=== PATIENT | male | born 1960 | race Caucasian/White ===

== ENCOUNTER 2018-03-26 20:02 | Inpatient (IN) | payer OTHER ==
[2018-03-26] VITALS (8 sets, daily range): BP systolic 97–134; BP diastolic 78–95; PULSE 60–74; RESP 15–25; Ht 165.1 cm; Wt 86.4 kg
[~2018-03-26] VITALS: Ht 165.1 cm; Wt 86.4 kg
[~2018-03-26 20:02] MED LIST: ASPIRIN 81 MG TAB ONE
[2018-03-26] MEDS ORDERED: AMIODARONE 150MG/D5W BOLUS IV* STA (20:04)
[2018-03-26] MEDS ORDERED: ASPIRIN 325 MG TAB PO STA (20:04)
[2018-03-26] MEDS ORDERED: HEPARIN 1000 UNITS/ML 10 ML INJ IV STA (20:07)
[2018-03-26] MEDS ORDERED: morphine 4 MG/ML VIAL IV STA (20:13)
[2018-03-26] MEDS ORDERED: ONDANSETRON 4 MG INJ IV STA (20:13)
[2018-03-26] MEDS ORDERED: NIAC500T81 PO (20:21)
[2018-03-26] MEDS ORDERED: OMEG-135 PO (20:22)
[2018-03-26] MEDS ORDERED: MAGNESIUM SULFATE 2 GM/50 ML 50 ML IVPB ONE (20:30)
[2018-03-26] MEDS ORDERED: FENTAnyl 50 MCG/ML VIAL ONE (20:35)
[2018-03-26] MEDS ORDERED: LIDOCAINE 1% (MDV) 20 ML INJ ONE (20:35)
[2018-03-26] MEDS ORDERED: HEPARIN 1000 UNITS/ML 10 ML INJ ONE (20:35)
[2018-03-26] MEDS ORDERED: IODIXANOL LOCM 100 ML BTL ONE (20:35)
[2018-03-26] MEDS ORDERED: MIDAZOLAM 1 MG/ML 2 ML INJ ONE (20:35)
[2018-03-26] MEDS ORDERED: NITROGLYCERIN (IC) 100 MCG/ML INJ ONE (20:36)
[2018-03-26] MEDS ORDERED: SOD CHLORIDE 0.9% 500 ML ONE (20:36)
[2018-03-26] MEDS ORDERED: BIVALIRUDIN 250MG /NS 50 ML 100 ML IVPB ONE (20:36)
[2018-03-26] MEDS ORDERED: VERAPAMIL 5 MG INJ ONE (20:39)
[2018-03-26] MEDS ORDERED: PRASUGREL HYDROCHLORIDE 10 MG TABLET PO ONE (20:45)
--- NOTE | 2018-03-26 21:05 | ERD ---
ER Documentation Chief Complaint Chief Complaint CHEST PAIN HPI 57-year-old Turkish and Malaysian-speaking gentleman who presents via cardiac arrest. The patient has reported chest pain since earlier this morning that was substernal and pressure-like. He was seen at his primary care office and sent to the emergency room. Prior to checking and the patient had a collapsed in the hallway. A code green was called. I rushed to the patient and the patient was in V. fib arrest. Please see documentation below. Remainder of HPI is limited given critical nature. ROS Critical patient limited Medications Home Meds Reported Medications [place]-3 Fatty Acids/Fish Oil (Fish Oil 1,000 mg Capsule) 1 Each Capsule, 1 EACH PO DAILY, CAP 03/26/18 Niacin* (Niacin*) 500 Mg Tablet, 500 MG PO QHS, TAB 03/26/18 Allergies Allergies: Coded Allergies: No Known Allergy (Unverified , 03/26/18) PMhx/Soc Medical and Surgical Hx: pt denies Surgical Hx History of Surgery: No Anesthesia Reaction: No Hx Neurological Disorder: No Hx Respiratory Disorders: No Hx Cardiac Disorders: No Hx Psychiatric Problems: No Hx Miscellaneous Medical Probl: Yes (HIGH CHOLESTEROL) Hx Alcohol Use: No Hx Substance Use: No Hx Tobacco Use: No Smoking Status: Never smoker FmHx Family History: No diabetes Physical Exam Vitals Vital Signs Date Temp Pulse Resp B/P (MAP) Pulse Ox O2 O2 Flow FiO2 Time Delivery Rate 03/26/18 Nasal 2 20:20 Cannula Physical Exam This exam exam performed after the patient's initial evaluation General: Well developed, well nourished, no acute distress Head: Normocephalic, atraumatic. Eyes: Pupils equally reactive, EOM intact ENT: Moist mucous membranes Neck: Supple, no lymphadenopathy Respiratory: Lungs clear bilaterally, no distress Cardiovascular: RRR, no murmurs, rubs, or gallops Abdominal: Soft, non-tender, non-distended, no peritoneal signs : Deferred MSK: No edema, no unilateral swelling, 5/5 strength Neurologic: Alert and oriented, moving all extremities, normal speech, no focal weakness, no cerebellar signs Skin: No rash Psych: Normal mood Result Diagram: 03/26/18200703/26/182007 Results 24 hrs Laboratory Tests Test 03/26/18 20:08 White Blood Count 19.2 10^3/ul Red Blood Count 5.24 10^6/ul Hemoglobin 15.9 g/dl Hematocrit 46.7 % Mean Corpuscular Volume 89.1 fl Mean Corpuscular Hemoglobin 30.3 pg Mean Corpuscular Hemoglobin Concent 34.0 g/dl Red Cell Distribution Width 12.6 % Platelet Count 147 10^3/UL Mean Platelet Volume 12.3 fl Immature Granulocytes % 0.700 % Neutrophils % 70.5 % Lymphocytes % 20.5 % Monocytes % 7.5 % Eosinophils % 0.4 % Basophils % 0.4 % Nucleated Red Blood Cells % 0.0 /100WBC Immature Granulocytes # 0.130 10^3/ul Neutrophils # 13.6 10^3/ul Lymphocytes # 3.9 10^3/ul Monocytes # 1.5 10^3/ul Eosinophils # 0.1 10^3/ul Basophils # 0.1 10^3/ul Nucleated Red Blood Cells # 0.0 10^3/ul Sodium Level 138 mmol/L Potassium Level 3.7 mmol/L Chloride Level 105 mmol/L Carbon Dioxide Level 20 mmol/L Anion Gap 13 Blood Urea Nitrogen 16 mg/dl Creatinine 1.22 mg/dl Est Glomerular Filtrat Rate mL/min > 60 mL/min Glucose Level 158 mg/dl Calcium Level 9.5 mg/dl Troponin I 7.330 ng/ml Current Medications Medications Dose Sig/Farhat Start Time Status Last (Trade) Ordered Route PRN Stop Time Admin Dose Reason Admin Aspirin 325 mg ONCE STAT 03/26/18 DC 03/26/18 (Aspirin) PO 20:04 20:00 03/26/18 20:05 Amiodarone 100 ml ONCE STAT 03/26/18 DC 03/26/18 HCl IV* 20:04 20:00 (Cordarone 03/26/18 20:05 150mg/ D5W Bolus) Heparin 4,000 unit ONCE STAT 03/26/18 DC Sodium IV 20:07 (Porcine) 03/26/18 20:08 (Heparin (1000 Units/ml)) Morphine 4 mg ONCE STAT 03/26/18 DC 03/26/18 Sulfate IV 20:13 20:30 (morphine) 03/26/18 20:14 Ondansetron 4 mg ONCE STAT 03/26/18 DC 03/26/18 HCl (Zofran IV 20:13 20:30 Inj) 03/26/18 20:14 Procedures/MDM EKG, MONITORS, & DIAGNOSTIC IMAGING: Chest x-ray: I reviewed and interpreted a 1 view of the chest Mediastinum: No enlargement Cardiac silhouette: No cardiomegaly Airspace: Clear lung harris bilaterally without evidence of pneumothorax Bones: No evidence of fracture EKG: I reviewed and interpreted a 12-lead EKG. Rhythm: Normal sinus rhythm ST Changes: ST elevations in inferior leads T waves: No contiguous T wave inversions Impression: STEMI LAB INTERPRETATION: I reviewed the laboratory testing and it shows troponin of 7 MEDICAL DECISION MAKING: The patient arrives via cardiac arrest. The patient had a V. fib cardiac arrest in the hallway just prior to checking into triage. His chest pain is concerning for acute coronary syndrome ER COURSE: * I arrived to the [facility] in the hallway. The patient was unresponsive and chest compressions were initiated. The patient was placed on defibrillator and the patient had V. fib cardiac arrest. The patient was defibrillated at 200 J * We continued chest compressions, the patient transiently regained consciousness however his wide-complex EKG on the monitor rapidly turned into ventricular fibrillation * The patient was again defibrillated at 200 J. * The patient stabilized. He was alert and moving all 4 extremities. The patient was placed on a gurney and brought to the emergency room. The patient is alert and conversive and does report 6 out of 10 chest pressure. * The patient is alert and conversive and moving all 4 extremities. He is neurologically intact and does not qualify for hypothermia protocol * A code STEMI was called while in route to the emergency department * Reimbursement Spec, Dr Lewis was notified. He recommends aspirin, 4000 units of heparin * Meds given, Morphine given. * LBPIV inserted. On monitor and pacer pads * Since the patient had V. fib cardiac arrest patient was given amiodarone and magnesium * The patient was taken to the Company [facility] at 8:20 PM CONSULTATION: Reimbursement Spec Dr. Lewis DISPOSITION PLAN: Company [employer] Accepting care team and consultations: I discussed the current laboratory data, diagnostic imaging and emergency care provided. Admitting team: Dr. Leiva notified Admitting team indication: Insurance directed Critical Care Note: Total time: 30 mins Indication/Organ System Threat: STEMI and V Fib arrest I spent the above amount of critical care time with the patient, not including billable procedures. This included chart review, consultations, repeat bedside evaluations, and titration of appropriate medications to prevent cardiopulmonary or respiratory collapse. Departure Diagnosis: Primary Impression: ST elevation myocardial infarction (STEMI) Additional Impressions: Cardiac arrest with ventricular fibrillation Signs of return of spontaneous circulation Condition: Critical JAMES MIMS MD Mar 26, 2018 21:05
[2018-03-26] MEDS ORDERED: SOD CHLORIDE 0.9% 1,000 ML IV SCH (21:17)
[2018-03-26] MEDS ORDERED: ONDANSETRON 4 MG INJ ONE (21:23)
--- NOTE | 2018-03-26 21:24 | CONS ---
Assessment/Plan Assessment/Plan Hospital Course (Demo Recall) 1. S/P SCD/ Survival of VF cardiac arrest 2. inferior STEMI 3. S/P emergent PCI LCX/OM 4. multivesel CAD 5. DYSLIPIDEMIA 6. GONZALEZ 7. Leukocytosis: probably reactive REC: ASA effient high dose statin betablocker as tolerated but hypotensive now ICU care CT head PCI RCA in a few days. high risk complex PCI LAD/ Diag at a later time. Thanks you JUANCARLOS CORONA MD [facility] Consultation Date/Type/Reason Admit Date/Time Date of Consultation: Mar 26, 2018 Type of Consult Cardiology Reason for Consultation STEMI Requesting Provider: JAMES MIMS MD Date/Time of Note DATE: 03/26/18 TIME: 21:23 Hx of Present Illness Interventional cardiology consultation note Chief complaint: chest pain, cardiac arrest Reason for consult: inferior STEMI. VF cardiac arrest History of present illness: Thank you for this referral. This is a pleasant 57 yo man with history of dyslipidemia who went to urgent care today with c/o GONZALEZ and anterior chest pain/ pressure. ECG was abnormal and sent to ER. While in hallway pt coded and collapsed and was noted to be in VF arrest and rescued. ECG confirmed inferior STEMI and code STEMI was called and I was emergently contacted. pt was seen by me in ER and once consent was obtained and team arrived pt was taken for emergent tamia angio and PCI his 100% lcx. dw/ family d/w multiple physician and staff pt had severe chest pain in ER but it has resolved post PCI PT C/O GONZALEZ since this am Allergies: NKDA Medications CHOLESTROL MEDICATION ( but noncompliant per family) Family history: no early CAD Social history: NONSMOKER Past medical history: Dyslipidemia Review of system: Patient denies all others except for above-mentioned Past Medical History Home Meds Reported Medications [place]-3 Fatty Acids/Fish Oil (Fish Oil 1,000 mg Capsule) 1 Each Capsule, 1 EACH PO DAILY, CAP 03/26/18 Niacin* (Niacin*) 500 Mg Tablet, 500 MG PO QHS, TAB 03/26/18 Medications Current Medications Magnesium Sulfate 50 ml @ 25 mls/hr ONCE ONCE IVPB Last administered on 03/26/18at 20:04; Admin Dose 25 MLS/HR; Start 03/26/18 at 20:30; Stop 03/26/18 at 22:29 Miscellaneous Information (* Miscellaneous Pharmacy Order) Hold all Metformin ... ONCE ONCE XX ; Start 03/26/18 at 21:30; Stop 03/26/18 at 21:31; Status UNV Aspirin (Halfprin) 81 mg DAILY PO ; Start 03/27/18 at 09:00; Status UNV Prasugrel (Effient) 10 mg DAILY PO ; Start 03/27/18 at 09:00; Status UNV Acetaminophen (Tylenol Tab) 650 mg Q4H PRN PO PAIN; Start 03/26/18 at 21:30; Status UNV Oxycodone/ Acetaminophen (Percocet (5/ 325)) 1 tab Q4H PRN PO PAIN; Start 03/26/18 at 21:30; Status UNV Morphine Sulfate (morphine) 1 mg Q1H PRN IV PAIN; Start 03/26/18 at 21:30; Status UNV Carvedilol (Coreg) 3.125 mg BID PO ; Start 03/27/18 at 09:00; Status UNV Atorvastatin Calcium (Lipitor) 80 mg DAILY@21 PO ; Start 03/27/18 at 21:00; Status UNV Lisinopril (Zestril) 2.5 mg DAILY PO ; Start 03/27/18 at 09:00; Status UNV Sodium Chloride 1,000 ml @ 75 mls/hr [id number] IV ; Start 03/26/18 at 21:17; Stop 03/27/18 at 10:36; Status UNV Allergies: Coded Allergies: No Known Allergy (Unverified , 03/26/18) Social History Smoking Status: Never smoker Exam/Review of Systems Vital Signs Vitals Vital Signs Date Temp Pulse Resp B/P (MAP) Pulse Ox O2 O2 Flow FiO2 Time Delivery Rate 03/26/18 98.5 85 26 127/90 99 Nasal 20:31 (102) Cannula 03/26/18 2 20:20 Exam Exam General: no acute distress HEENT: NC/AT. pupils are equal. round. NECK: NO JVD. no stridor. CV: RRR. systolic murmur; no gallop or rubs. PULM: no wheezing or rhonchi. GI: SOFT, NT, ND, no rebound or guarding Extremity: trace B/L LE edema. no clubbing. neuro: awake and alert, OX3. Psych: calm and pleasant rectal: deferred : normal ECG NSR inferior STEMI CXR no acute disease Labs Result Diagram: 03/26/18200703/26/182007 Results 24hrs Laboratory Tests Test 03/26/18 20:08 White Blood Count 19.2 H Red Blood Count 5.24 Hemoglobin 15.9 Hematocrit 46.7 Mean Corpuscular Volume 89.1 Mean Corpuscular Hemoglobin 30.3 Mean Corpuscular Hemoglobin Concent 34.0 Red Cell Distribution Width 12.6 Platelet Count 147 Mean Platelet Volume 12.3 H Immature Granulocytes % 0.700 H Neutrophils % 70.5 Lymphocytes % 20.5 Monocytes % 7.5 Eosinophils % 0.4 Basophils % 0.4 Nucleated Red Blood Cells % 0.0 Immature Granulocytes # 0.130 H Neutrophils # 13.6 H Lymphocytes # 3.9 H Monocytes # 1.5 H Eosinophils # 0.1 Basophils # 0.1 Nucleated Red Blood Cells # 0.0 Sodium Level 138 Potassium Level 3.7 Chloride Level 105 Carbon Dioxide Level 20 L Anion Gap 13 Blood Urea Nitrogen 16 Creatinine 1.22 Est Glomerular Filtrat Rate mL/min > 60 Glucose Level 158 Calcium Level 9.5 Troponin I 7.330 *H Medications Medications Current Medications Magnesium Sulfate 50 ml @ 25 mls/hr ONCE ONCE IVPB Last administered on 03/26/18at 20:04; Admin Dose 25 MLS/HR; Start 03/26/18 at 20:30; Stop 03/26/18 at 22:29 Miscellaneous Information (* Miscellaneous Pharmacy Order) Hold all Metformin ... ONCE ONCE XX ; Start 03/26/18 at 21:30; Stop 03/26/18 at 21:31; Status UNV Aspirin (Halfprin) 81 mg DAILY PO ; Start 03/27/18 at 09:00; Status UNV Prasugrel (Effient) 10 mg DAILY PO ; Start 03/27/18 at 09:00; Status UNV Acetaminophen (Tylenol Tab) 650 mg Q4H PRN PO PAIN; Start 03/26/18 at 21:30; Status UNV Oxycodone/ Acetaminophen (Percocet (5/ 325)) 1 tab Q4H PRN PO PAIN; Start 03/26/18 at 21:30; Status UNV Morphine Sulfate (morphine) 1 mg Q1H PRN IV PAIN; Start 03/26/18 at 21:30; Status UNV Carvedilol (Coreg) 3.125 mg BID PO ; Start 03/27/18 at 09:00; Status UNV Atorvastatin Calcium (Lipitor) 80 mg DAILY@21 PO ; Start 03/27/18 at 21:00; Status UNV Lisinopril (Zestril) 2.5 mg DAILY PO ; Start 03/27/18 at 09:00; Status UNV Sodium Chloride 1,000 ml @ 75 mls/hr [id number] IV ; Start 03/26/18 at 21:17; Stop 03/27/18 at 10:36; Status UNV JUANCARLOS CORONA MD Mar 26, 2018 21:24
[2018-03-26] MEDS ORDERED: ACETAMINOPHEN 325 MG TAB PO PRN (21:30)
[2018-03-26] MEDS ORDERED: morphine 2 MG INJ IV PRN (21:30)
--- NOTE | 2018-03-26 21:34 | OPR ---
Date/Time of Note Date/Time of Note DATE: 03/26/18 TIME: 21:24 Operative Report Procedure Date: Mar 26, 2018 Preoperative Diagnosis inferior STEMI VF cardiac arrest Postoperative Diagnosis STEMI Operation/Procedure Performed PCI LCX Surgeon see signature line Rough Rib Grader none Anesthesia Type: moderate sedation Estimated Blood Loss: minimal Transfusion none Specimen none Grafts/Implants none Complications none Procedure Description Legislative Advocate: Juancarlos Lewis MD Indication: inferior STEMI. VF cardiac arrest Procure performed: #1 EMERGENT left heart catheterization and selective right and left coronary angiogram #2 Right femoral angiogram and closure using a perclose device 3. Successful PTCA and stenting of lcx. OM using a 3X24 mm synergy SYLWIA 4. Thrombectomy of LCX /OM Moderate sedation for more than [] minutes Findings: 1. Left main: has 10% stenosis and birfurcates to LAD & LCX. 2. LAD: is small has 50% ostial 80-90 % stenosis at proximal LAD at the site of diagonal, and 100 % stenosis at mid LAD with L ---> L and R ---> L collaterals. diagonal 1 is moderate size vessel with 80% proximal stenosis. 3. Left circumflex artery: is moderate / large nondominant. it has 100 % stenosis at mid LCX/ Ostial OM1 ----> 0% POST PCI 4. RCA: is dominant. is small has 70% stenosis at mid RCA 5. LV: 99/20 Aortic pressure by pull back: 89/64 Procedure in detail: Written informed consent with obtained after risks benefits and alternatives discussed with the patient in detail. risks including but not limited to risk of infection vascular complications, bleeding complications, [place] stroke arrhythmia renal failure at even were discussed with the patient in detail. Patient was emergently brought into the cardiac lab head and placed in supine position. Right and left groin area was prepped and draped in regular sterile fashion and then he was in anesthetized using 1% lidocaine. Right femoral artery was cannulated and using modified seldinger technique a 6 Greek sheath was placed in the femoral artery. JL4 guiding catheter was advanced to engage the left main coronary artery angiographic view was obtained. JR4 catheter was advanced and engaged into the right coronary artery and angiographic view was obtained. At this time we decided to perform PCI of the LCX artery. A VODA 3.5 guiding head was advanced to engage the LM artery. BMW wire was used but could not cross. dispatcher ship pilot 50 was used and advanced across the lesion and placed distal to the lesion. I used a 2.5x12 mm balloon which was placed across the lesion and predilated the vessel. Then pronto was used and thrombectomy was done. Then I used a 3x24 mm synergy SYLWIA stent which was placed across the lesion and deployed at 16 haja. Final angiographic view was obtained which showed NELLI-3 flow no evidence of dissection and no significant residual stenosis at the site of the stent. Then a PIGTAIL was advanced to engage the left ventricle hemodynamics as recorded by pullback aortic pressure was measured. Femoral angiogram was done with flouros and perclose was successfully deployed. Patient tolerated the procedure well with no complication. Patient was transferred to ICU in stable condition. contrast used: 127 cc visipaque Conclusions: Successful PTCA/thrombectomy/ stenting of the LCX artery from 100% stenosis to no significant residual stenosis using a 3X24 mm synergy SYLWIA stent. Recommendation: Aggressive medical therapy ASA/ effient ICU care overnight staged PCI of RCA. LAD./ Diag at a later time. JUANCARLOS LEWIS MD [facility] JUANCARLOS LEWIS MD Mar 26, 2018 21:34
[2018-03-26] MEDS ORDERED: POTASSIUM CHLORIDE (SR) 20 MEQ TAB PO ONE (21:54)
[2018-03-26] MEDS: PANTOPRAZOLE (EC) 40 MG TAB PO SCH (23:17)
[2018-03-27] VITALS (46 sets, daily range): BP systolic 97–135; BP diastolic 64–91; PULSE 54–80; RESP 12–26
[2018-03-27] MEDS: OXYCODONE/ACETAMINOPHEN (5/325) TAB PO PRN ×2 (05:25→09:21)
[2018-03-27] MEDS: ASPIRIN (EC) 81 MG TAB PO SCH (09:10)
[2018-03-27] MEDS: LISINOPRIL 5 MG TAB PO SCH (09:11)
--- NOTE | 2018-03-27 09:33 | HP ---
Date/Time of Note Date/Time of Note DATE: 03/27/18 TIME: 09:11 Assessment/Plan VTE Prophylaxis Risk score (from [facility] [place])>0 risk: 3 SCD applied (from [facility] [place]): Yes Pharmacological prophylaxis: NA/contraindicated Pharm contraindication: other Lines/Catheters IV Catheter Type (from [facility] Saline Lock Urinary Cath still in place: No Assessment/Plan Assessment/Plan 57-year-old male with: 1. Acute OK, inferior ST elevation, status post stenting of left circumflex last night, patient with additional significant stenosis noted. Patient likely to need staged procedures, is currently on dual antiplatelets. Appreciate recommendations from cardiology. Continue current carvedilol, lisinopril and Lipitor. 2. Hyperlipidemia: On Lipitor now. Prophylaxis: Protonix for GI prophylaxis, SCDs for DVT prophylaxis. Disposition: In ICU likely to need additional PCI. Follow-up cardiology recommendations. Result Diagram: 03/27/18 0454 03/27/18 0454 Results 24hrs Laboratory Tests Test 03/26/18 20:08 03/26/18 23:20 03/27/18 04:54 03/27/18 04:56 White Blood Count 19.2 H 13.1 #H Red Blood Count 5.24 5.06 Hemoglobin 15.9 15.3 Hematocrit 46.7 45.8 Mean Corpuscular 89.1 90.5 Volume Mean Corpuscular 30.3 30.2 Hemoglobin Mean Corpuscular 34.0 33.4 Hemoglobin Concent Red Cell 12.6 13.0 Distribution Width Platelet Count 147 132 L Mean Platelet Volume 12.3 H 12.7 H Immature 0.700 H 0.500 H Granulocytes % Neutrophils % 70.5 83.3 H Lymphocytes % 20.5 10.5 L Monocytes % 7.5 5.5 Eosinophils % 0.4 0.0 Basophils % 0.4 0.2 Nucleated Red Blood 0.0 0.0 Cells % Immature 0.130 H 0.070 H Granulocytes # Neutrophils # 13.6 H 10.9 H Lymphocytes # 3.9 H 1.4 Monocytes # 1.5 H 0.7 Eosinophils # 0.1 0.0 Basophils # 0.1 0.0 Nucleated Red Blood 0.0 0.0 Cells # Sodium Level 138 143 Potassium Level 3.7 4.3 Chloride Level 105 101 Carbon Dioxide Level 20 L 27 Anion Gap 13 15 H Blood Urea Nitrogen 16 14 Creatinine 1.22 1.13 Est Glomerular > 60 > 60 Filtrat Rate mL/min Glucose Level 158 140 Calcium Level 9.5 9.3 Troponin I 7.330 *H 96.200 *H Magnesium Level 2.5 2.3 Total Bilirubin 0.8 Direct Bilirubin 0.00 Indirect Bilirubin 0.8 Aspartate Amino 507 H Transf (AST/SGOT) Alanine 156 H Aminotransferase (AL T/SGPT) Alkaline Phosphatase 74 Creatine Kinase Creatine Kinase 6.8 Index Creatinine Kinase MB 361.00 H (Mass) B-Type Natriuretic 1960 H Peptide Total Protein 7.8 Albumin 4.5 Globulin 3.30 H Albumin/Globulin 1.36 Ratio Triglycerides Level 161 H Cholesterol Level 249 H LDL Cholesterol, 183 Calculated HDL Cholesterol 34 Cholesterol/HDL 7.3 Ratio Thyroid Stimulating 0.484 Hormone (TSH) Free Thyroxine 1.04 Prothrombin Time 14.3 Prothrombin Time 1.1 Ratio INR International 1.10 Normalized Ratio HPI/ROS Admit Date/Time Admit Date/Time Hx of Present Illness Chief complaint: Chest pain, abnormal EKG History of presenting illness: This is a 57-year-old male with history of hyperlipidemia, very active otherwise who was sent over to the emergency department from a local clinic with acute onset of chest pain and abnormal EKG, the patient had episode of V. fib cardiac arrest while registering in the ER, he was resuscitated successfully, diagnosed with inferior ST elevation OK and taken to the [facility] for emergent cardiac angiogram and stent placement last night. Patient reports that he has had acute onset of chest pains yesterday morning, he thought it was acid reflux, he went on and indeed he does work throughout the morning, he felt substernal burning throughout the day, bilateral arm heaviness, later on started having diaphoresis, nausea, chest burning in the substernal chest heaviness and pain was persistent therefore his insisted for him to go to a 24-hour clinic. At the clinic an EKG was done, patient was told it was abnormal and showing signs of arrhythmia, he was told to come to [facility] ER by the clinic staff. The patient reports previous episodes of acid reflux but not anything like the symptoms he was having yesterday. He denies any previous history of coronary ar stacia disease, hypertension or diabetes. He does have hyperlipidemia. He does not take any medications besides Prilosec for acid reflux. ROS Constitutional: improved Eyes: no complaints ENT: no complaints Respiratory: no complaints Cardiovascular: chest pain, lightheadedness Gastrointestinal: nausea Genitourinary: no complaints Musculoskeletal: no complaints Skin: no complaints Neurologic: no complaints Endocrine: no complaints PMH/Family/Social Past Medical History Medical History: GERD, high cholesterol Medications Current Medications Aspirin (Halfprin) 81 mg DAILY PO ; Start 03/27/18 at 09:00 Prasugrel (Effient) 10 mg DAILY PO ; Start 03/27/18 at 09:00 Acetaminophen (Tylenol Tab) 650 mg Q4H PRN PO PAIN; Start 03/26/18 at 21:30 Oxycodone/ Acetaminophen (Percocet (5/ 325)) 1 tab Q4H PRN PO PAIN Last administered on 03/27/18at 05:25; Admin Dose 1 TAB; Start 03/26/18 at 21:30 Morphine Sulfate (morphine) 1 mg Q1H PRN IV PAIN; Start 03/26/18 at 21:30 Carvedilol (Coreg) 3.125 mg BID PO ; Start 03/27/18 at 09:00 Atorvastatin Calcium (Lipitor) 80 mg DAILY@21 PO ; Start 03/27/18 at 21:00 Lisinopril (Zestril) 2.5 mg DAILY PO ; Start 03/27/18 at 09:00 Sodium Chloride 1,000 ml @ 75 mls/hr [id number] IV Last administered on 03/26/18at 22:30; Admin Dose 75 MLS/HR; Start 03/26/18 at 21:17; Stop 03/27/18 at 10:36 Pantoprazole (Protonix Tab) 40 mg QHS PO Last administered on 03/26/18at 23:17; Admin Dose 40 MG; Start 03/26/18 at 22:00 Coded Allergies: No Known Allergy (Unverified , 03/26/18) Past Surgical History Surgery for kidney stone remotely. Past Surgical Hx: other Family History Significant Family History: no pertinent family hx Social History Alcohol Use: none Smoking Status: Never smoker Drug Use: none Exam/Review of Systems Vital Signs Vitals Vital Signs Date Temp Pulse Resp B/P (MAP) Pulse Ox O2 O2 Flow FiO2 Time Delivery Rate 03/27/18 69 22 113/85 96 Room Air 09:00 (94) 03/27/18 99.0 08:00 03/26/18 2 20:20 Intake and Output 03/26/18 03/26/18 03/27/18 1515:00 23:00 07:00 IntakeIntake Total 75 ml 375 ml BalanceBalance 75 ml 375 ml Exam Constitutional: alert, oriented, well developed Respiratory: clear to auscultation, normal air movement Cardiovascular: regular rate and rhythm, nl pulses Gastrointestinal: soft, non-tender Musculoskeletal: nl extremities to inspection Extremities: normal pulses, other (No edema, clubbing or cyanosis) Neurological: POLICY SPECIALIST II-XII intact, nl mental status, nl speech, nl strength Additional Comments PROCEDURE: XR Chest AP portable CLINICAL INDICATION: Chest pain TECHNIQUE: An AP portable radiograph of the chest was submitted. COMPARISON: None. FINDINGS: Support Hardware: None Cardiovascular: The cardiovascular silhouette appears unremarkable. Lung Harris: The lung harris appear clear with no nodule, alveolar infiltrate, or interstitial prominence evident. Pleural Spaces: No pneumothorax or pleural effusion is identified. Osseous Structures: The osseous structures appear intact. Soft Tissues: The soft tissues appear unremarkable. IMPRESSION: Unremarkable portable chest without evidence of active cardiopulmonary disease. Physician Yaniv Date Time Electronically viewed and signed by Physician Yaniv on 03/26/2018 20:31 PROCEDURE: CT Brain without contrast. CLINICAL INDICATION: Headache, status post fall TECHNIQUE: Axial images from the skull base through the vertex without IV contrast. Multiplanar reformatted images were made. Images were reviewed on a PACS workstation. The CTDIvol is 38.70 mGy and the DLP is 634.23 mGy-cm. One or more of the following dose reduction techniques were used: automated exposure control, adjustment of the mA and/or kV according to patient size, or use of iterative reconstruction technique. DICOM images are available. COMPARISON: None. FINDINGS: Mild left posterior parieto-occipital scalp soft tissue swelling, within which there are 2 tiny radiodense foci visible. Incidental note is also made of a few other scattered punctate subcutaneous calcifications within the scalp extending to the vertex. No acute intracranial hemorrhage or extraaxial fluid collection is seen. No midline shift or mass effect. Brooks-white delineation is maintained. No identifiable acute or recent territorial infarct. Ventricular size and configuration are within normal limits. No evidence of hydrocephalus. Mastoid air cells and visualized paranasal sinuses are clear. Mild calcified intracranial atherosclerosis. The calvarium is intact. IMPRESSION: Left posterior scalp soft tissue swelling within which there are 2 tiny ra diodense foci that may be preexisting scalp calcifications or tiny foreign bodies. No acute intracranial sequela from trauma is seen at this time. Calcified intracranial atherosclerosis. RPTAT: [facility] Physician Dilcia Date Time Electronically viewed and signed by Physician Dilcia on 03/27/2018 03:11 RUSS DE LA ROSA Mar 27, 2018 09:22
[2018-03-27] MEDS: ENOXAPARIN 100 MG/ML SYG SC SCH (13:37)
[2018-03-27] MEDS: PRASUGREL HYDROCHLORIDE 10 MG TABLET PO SCH (13:37)
--- NOTE | 2018-03-27 14:21 | CONS ---
Consult Date/Type/Reason Admit Date/Time Mar 26, 2018 at 20:25 Initial Consult Date 03/26/18 Type of Consultation: CV Requesting Provider: JAMES MIMS MD Date/Time of Note DATE: 03/27/18 TIME: 14:17 Subjective Interventional cardiology follow-up progress note/critical care note Subjective: Case discussed with staff and multiple physicians: Dr.. Discussed with multiple family members including son and daughter. Patient is still complaint of chest wall tenderness. He has had episodes of idioventricular rhythm this morning. Is been closely mon itor him in the ICU still. Denies any groin pain. Objective: General: no acute distress HEENT: NC/AT. pupils are equal. round. NECK: NO JVD. no stridor. CV: RRR. systolic murmur; no gallop or rubs. Chest: Positive reproducible chest wall tenderness PULM: no wheezing or rhonchi. GI: SOFT, NT, ND, no rebound or guarding Extremity: trace B/L LE edema. no clubbing. neuro: awake and alert, OX3. Psych: calm and pleasant rectal: deferred : normal Multiple EKGs were reviewed. Objective Vitals Vital Signs Date Temp Pulse Resp B/P (MAP) Pulse Ox O2 O2 Flow FiO2 Time Delivery Rate 03/27/18 62 24 104/80 99 Room Air 13:00 (88) 03/27/18 98.1 12:00 03/26/18 2 20:20 Intake and Output 03/26/18 03/26/18 03/27/18 1515:00 23:00 07:00 IntakeIntake Total 75 ml 375 ml BalanceBalance 75 ml 375 ml Results/Medications Result Diagram: 03/27/18 0454 03/27/18 0454 Results 24 hrs Laboratory Tests Test 03/26/18 20:08 03/26/18 23:20 03/27/18 04:54 03/27/18 04:56 White Blood Count 19.2 H 13.1 #H Red Blood Count 5.24 5.06 Hemoglobin 15.9 15.3 Hematocrit 46.7 45.8 Mean Corpuscular 89.1 90.5 Volume Mean Corpuscular 30.3 30.2 Hemoglobin Mean Corpuscular 34.0 33.4 Hemoglobin Concent Red Cell 12.6 13.0 Distribution Width Platelet Count 147 132 L Mean Platelet Volume 12.3 H 12.7 H Immature 0.700 H 0.500 H Granulocytes % Neutrophils % 70.5 83.3 H Lymphocytes % 20.5 10.5 L Monocytes % 7.5 5.5 Eosinophils % 0.4 0.0 Basophils % 0.4 0.2 Nucleated Red Blood 0.0 0.0 Cells % Immature 0.130 H 0.070 H Granulocytes # Neutrophils # 13.6 H 10.9 H Lymphocytes # 3.9 H 1.4 Monocytes # 1.5 H 0.7 Eosinophils # 0.1 0.0 Basophils # 0.1 0.0 Nucleated Red Blood 0.0 0.0 Cells # Sodium Level 138 143 Potassium Level 3.7 4.3 Chloride Level 105 101 Carbon Dioxide Level 20 L 27 Anion Gap 13 15 H Blood Urea Nitrogen 16 14 Creatinine 1.22 1.13 Est Glomerular > 60 > 60 Filtrat Rate mL/min Glucose Level 158 140 Calcium Level 9.5 9.3 Troponin I 7.330 *H 96.200 *H Magnesium Level 2.5 2.3 Hemoglobin A1c 6.0 H Total Bilirubin 0.8 Direct Bilirubin 0.00 Indirect Bilirubin 0.8 Aspartate Amino 507 H Transf (AST/SGOT) Alanine 156 H Aminotransferase (AL T/SGPT) Alkaline Phosphatase 74 Creatine Kinase Creatine Kinase 6.8 Index Creatinine Kinase MB 361.00 H (Mass) B-Type Natriuretic 1960 H Peptide Total Protein 7.8 Albumin 4.5 Globulin 3.30 H Albumin/Globulin 1.36 Ratio Triglycerides Level 161 H Cholesterol Level 249 H LDL Cholesterol, 183 Calculated HDL Cholesterol 34 Cholesterol/HDL 7.3 Ratio Thyroid Stimulating 0.484 Hormone (TSH) Free Thyroxine 1.04 Prothrombin Time 14.3 Prothrombin Time 1.1 Ratio INR International 1.10 Normalized Ratio Home Meds Reported Medications Zamora-3 Fatty Acids/Fish Oil (Fish Oil 1,000 mg Capsule) 1 Each Capsule, 1 EACH PO DAILY, CAP 03/26/18 Niacin* (Niacin*) 500 Mg Tablet, 500 MG PO QHS, TAB 03/26/18 Medications Current Medications Aspirin (Halfprin) 81 mg DAILY PO Last administered on 03/27/18at 09:10; Admin Dose 81 MG; Start 03/27/18 at 09:00 Prasugrel (Effient) 10 mg DAILY PO Last administered on 2/16/19at 13:37; Admin Dose 10 MG; Start 03/27/18 at 09:00 Acetaminophen (Tylenol Tab) 650 mg Q4H PRN PO PAIN; Start 03/26/18 at 21:30 Oxycodone/ Acetaminophen (Percocet (5/ 325)) 1 tab Q4H PRN PO PAIN Last administered on 03/27/18 09:21; Admin Dose 1 TAB; Start 03/26/18 at 21:30 Morphine Sulfate (morphine) 1 mg Q1H PRN IV PAIN; Start 03/26/18 at 21:30 Carvedilol (Coreg) 3.125 mg BID PO Last administered on 03/27/18 09:11; Admin Dose 3.125 MG; Start 03/27/18 at 09:00 Atorvastatin Calcium (Lipitor) 80 mg DAILY@21 PO ; Start 03/27/18 at 21:00 Lisinopril (Zestril) 2.5 mg DAILY PO Last administered on 03/27/18 09:11; Admin Dose 2.5 MG; Start 03/27/18 at 09:00 Pantoprazole (Protonix Tab) 40 mg QHS PO Last administered on 03/26/18 23:17; Admin Dose 40 MG; Start 03/26/18 at 22:00 Enoxaparin Sodium (Lovenox) 85 mg Q12H SC Last administered on 03/27/18 13:37; Admin Dose 85 MG; Start 03/27/18 at 13:00; Stop 03/28/18 at 01:01 Assessment/Plan Hospital Course (Demo Recall) 1. S/P SCD/ Survival of VF cardiac arrest 2. inferior STEMI 3. S/P emergent PCI LCX/OM 4. multivesel CAD 5. DYSLIPIDEMIA 6. GONZALEZ 7. Leukocytosis: probably reactive : Improved now REC: CONT ASA effient high dose statin betablocker as tolerated but limited due to hypotension and bradycardia ICU care CT head did not show any active bleeding PCI RCA in a few days. high risk complex PCI LAD/ Diag at a later time. Echo has been ordered. I will waiting to be completed so I can review it personally. More than 38 minutes of critical care time was for management treatment of this critically ill patient excluding any procedures Thanks you JUANCARLOS CORONA MD [facility] JUANCARLOS CORONA MD Mar 27, 2018 14:21
[2018-03-27] MEDS: ATORVASTATIN 80 MG TAB PO SCH (20:09)
[2018-03-27] MEDS: PANTOPRAZOLE (EC) 40 MG TAB PO SCH (20:09)
[2018-03-28] VITALS (16 sets, daily range): BP systolic 85–140; BP diastolic 65–95; PULSE 63–78; RESP 12–22
[2018-03-28] MEDS: ENOXAPARIN 100 MG/ML SYG SC SCH (01:24)
[2018-03-28] MEDS: PRASUGREL HYDROCHLORIDE 10 MG TABLET PO SCH (08:01)
[2018-03-28] MEDS: ASPIRIN (EC) 81 MG TAB PO SCH (08:01)
[2018-03-28] MEDS: LISINOPRIL 5 MG TAB PO SCH (09:00)
--- NOTE | 2018-03-28 09:29 | PN ---
Date/Time of Note Date/Time of Note DATE: 03/28/18 TIME: 09:15 Assessment/Plan VTE Prophylaxis Risk score (from [facility])>0 risk: 4 [place] [facility] [place] Pharmacological prophylaxis: NA/contraindicated Pharm contraindication: other Lines/Catheters [facility] Saline Lock Urinary Cath still in place: No Assessment/Plan Assessment/Plan 57-year-old male with: 1. Acute PA, inferior ST elevation, status post stenting of left circumflex last night, patient with additional significant stenosis noted. 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 Appreciate recommendations from cardiology. Will downgrade to Telemetry 2. Hyperlipidemia: On Lipitor now. Prophylaxis: Protonix for GI prophylaxis, SCDs for DVT prophylaxis. Disposition: Telemetry and plan for chemical lab supervisor tomorrow. Result Diagram: 03/28/18 0416 03/28/18 0416 Results 24hrs Laboratory Tests Test 03/27/18 16:13 03/28/18 04:16 Creatine Kinase 5064 H 2431 #H Creatine Kinase Index 2.8 1.6 Creatinine Kinase MB (Mass) 144.00 H 39.60 H Troponin I 64.000 *H 45.900 *H White Blood Count 11.4 H Red Blood Count 4.77 Hemoglobin 14.4 Hematocrit 43.2 Mean Corpuscular Volume 90.6 Mean Corpuscular Hemoglobin 30.2 Mean Corpuscular Hemoglobin Concent 33.3 Red Cell Distribution Width 12.9 Platelet Count 123 L Mean Platelet Volume 12.7 H Immature Granulocytes % 0.400 Neutrophils % 63.4 Lymphocytes % 26.3 Monocytes % 8.6 Eosinophils % 0.9 Basophils % 0.4 Nucleated Red Blood Cells % 0.0 Immature Granulocytes # 0.040 H Neutrophils # 7.2 Lymphocytes # 3.0 H Monocytes # 1.0 H Eosinophils # 0.1 Basophils # 0.0 Nucleated Red Blood Cells # 0.0 Sodium Level 141 Potassium Level 4.2 Chloride Level 101 Carbon Dioxide Level 29 Anion Gap 11 Blood Urea Nitrogen 15 Creatinine 1.25 H Est Glomerular Filtrat Rate mL/min 60 Glucose Level 108 Calcium Level 9.1 Phosphorus Level 3.3 Magnesium Level 2.0 Total Bilirubin 1.3 Direct Bilirubin 0.00 Indirect Bilirubin 1.3 H Aspartate Amino Transf (AST/SGOT) 230 #H Alanine Aminotransferase (ALT/SGPT) 112 H Alkaline Phosphatase 67 Total Protein 7.3 Albumin 4.0 Globulin 3.30 H Albumin/Globulin Ratio 1.21 Subjective 24 Hr Interval Summary Free Text/Dictation Patient remained stable, he was noted to have an episode of hypotension with systolic blood pressure in the 80s according to RN overnight, currently systolic blood pressure in the upper 100s. We will continue to monitor blood pressure, patient will be transferred to telemetry. He does have some reproducible chest wall pain left axillary area. Exam/Review of Systems Exam Vitals Vital Signs Date Temp Pulse Resp B/P (MAP) Pulse Ox O2 O2 Flow FiO2 Time Delivery Rate 03/28/18 98.9 77 16 85/68 (74) 98 Room Air 04:00 03/26/18 2 20:20 Intake and Output 03/27/18 03/27/18 03/28/18 1515:00 23:00 07:00 IntakeIntake Total 900 ml 450 ml 400 ml OutputOutput Total 800 ml 250 ml BalanceBalance 100 ml 200 ml 400 ml Constitutional: alert, oriented, well developed Respiratory: clear to auscultation, normal air movement Cardiovascular: regular rate and rhythm, nl pulses Gastrointestinal: soft, non-tender Musculoskeletal: nl extremities to inspection Extremities: normal pulses, other (No edema, clubbing or cyanosis) Neurological: [employer] II-XII intact, nl mental status, nl speech, nl strength Results Results 24hrs Laboratory Tests Test 03/27/18 16:13 03/28/18 04:16 Creatine Kinase 5064 H 2431 #H Creatine Kinase Index 2.8 1.6 Creatinine Kinase MB (Mass) 144.00 H 39.60 H Troponin I 64.000 *H 45.900 *H White Blood Count 11.4 H Red Blood Count 4.77 Hemoglobin 14.4 Hematocrit 43.2 Mean Corpuscular Volume 90.6 Mean Corpuscular Hemoglobin 30.2 Mean Corpuscular Hemoglobin Concent 33.3 Red Cell Distribution Width 12.9 Platelet Count 123 L Mean Platelet Volume 12.7 H Immature Granulocytes % 0.400 Neutrophils % 63.4 Lymphocytes % 26.3 Monocytes % 8.6 Eosinophils % 0.9 Basophils % 0.4 Nucleated Red Blood Cells % 0.0 Immature Granulocytes # 0.040 H Neutrophils # 7.2 Lymphocytes # 3.0 H Monocytes # 1.0 H Eosinophils # 0.1 Basophils # 0.0 Nucleated Red Blood Cells # 0.0 Sodium Level 141 Potassium Level 4.2 Chloride Level 101 Carbon Dioxide Level 29 Anion Gap 11 Blood Urea Nitrogen 15 Creatinine 1.25 H Est Glomerular Filtrat Rate mL/min 60 Glucose Level 108 Calcium Level 9.1 Phosphorus Level 3.3 Magnesium Level 2.0 Total Bilirubin 1.3 Direct Bilirubin 0.00 Indirect Bilirubin 1.3 H Aspartate Amino Transf (AST/SGOT) 230 #H Alanine Aminotransferase (ALT/SGPT) 112 H Alkaline Phosphatase 67 Total Protein 7.3 Albumin 4.0 Globulin 3.30 H Albumin/Globulin Ratio 1.21 Medications Medication Current Medications Aspirin (Halfprin) 81 mg DAILY PO Last administered on 03/28/18 08:01; Admin Dose 81 MG; Start 03/27/18 at 09:00 Prasugrel (Effient) 10 mg DAILY PO Last administered on 03/28/18 08:01; Admin Dose 10 MG; Start 03/27/18 at 09:00 Acetaminophen (Tylenol Tab) 650 mg Q4H PRN PO PAIN; Start 03/26/18 at 21:30 Oxycodone/ Acetaminophen (Percocet (5/ 325)) 1 tab Q4H PRN PO PAIN Last administered on 03/27/18 09:21; Admin Dose 1 TAB; Start 03/26/18 at 21:30 Morphine Sulfate (morphine) 1 mg Q1H PRN IV PAIN; Start 03/26/18 at 21:30 Carvedilol (Coreg) 3.125 mg BID PO Last administered on 03/27/18 20:09; Admin Dose 3.125 MG; Start 03/27/18 at 09:00 Atorvastatin Calcium (Lipitor) 80 mg DAILY@21 PO Last administered on 03/27/18 20:09; Admin Dose 80 MG; Start 03/27/18 at 21:00 Lisinopril (Zestril) 2.5 mg DAILY PO Last administered on 03/27/18 09:11; Admin Dose 2.5 MG; Start 03/27/18 at 09:00 Pantoprazole (Protonix Tab) 40 mg QHS PO Last administered on 03/27/18 20:09; Admin Dose 40 MG; Start 03/26/18 at 22:00 RUSS DE LA ROSAb 17, 2019 09:27
--- NOTE | 2018-03-28 14:13 | CONS ---
Consult Date/Type/Reason Admit Date/Time Mar 26, 2018 at 20:25 Initial Consult Date 03/26/18 Type of Consultation: CV Requesting Provider: JAMES MIMS MD Date/Time of Note DATE: 03/28/18 TIME: 14:11 Subjective Interventional cardiology follow-up progress note/critical care note Subjective: Case discussed with staff and multiple physicians: Dr Leiva. Discussed with multiple family members Patient with less chest wall tenderness. He has had no more episodes of idioventricular rhythm this morning. but was hypotensive Denies any groin pain. Objective: General: no acute distress HEENT: NC/AT. pupils are equal. round. NECK: NO JVD. no stridor. CV: RRR. systolic murmur; no gallop or rubs. Chest: Positive reproducible chest wall tenderness PULM: no wheezing or rhonchi. GI: SOFT, NT, ND, no rebound or guarding Extremity: trace B/L LE edema. no clubbing. neuro: awake and alert, OX3. Psych: calm and pleasant rectal: deferred : normal Objective Vitals Vital Signs Date Temp Pulse Resp B/P (MAP) Pulse Ox O2 O2 Flow FiO2 Time Delivery Rate 03/28/18 66 12:00 03/28/18 97.9 20 110/88 100 Room Air 12:00 (95) 03/26/18 2 20:20 Intake and Output 03/27/18 03/27/18 03/28/18 1515:00 23:00 07:00 IntakeIntake Total 900 ml 450 ml 400 ml OutputOutput Total 800 ml 250 ml BalanceBalance 100 ml 200 ml 400 ml Results/Medications Result Diagram: 03/28/18 0416 03/28/18 0416 Results 24 hrs Laboratory Tests Test 03/27/18 16:13 03/28/18 04:16 Creatine Kinase 5064 H 2431 #H Creatine Kinase Index 2.8 1.6 Creatinine Kinase MB (Mass) 144.00 H 39.60 H Troponin I 64.000 *H 45.900 *H White Blood Count 11.4 H Red Blood Count 4.77 Hemoglobin 14.4 Hematocrit 43.2 Mean Corpuscular Volume 90.6 Mean Corpuscular Hemoglobin 30.2 Mean Corpuscular Hemoglobin Concent 33.3 Red Cell Distribution Width 12.9 Platelet Count 123 L Mean Platelet Volume 12.7 H Immature Granulocytes % 0.400 Neutrophils % 63.4 Lymphocytes % 26.3 Monocytes % 8.6 Eosinophils % 0.9 Basophils % 0.4 Nucleated Red Blood Cells % 0.0 Immature Granulocytes # 0.040 H Neutrophils # 7.2 Lymphocytes # 3.0 H Monocytes # 1.0 H Eosinophils # 0.1 Basophils # 0.0 Nucleated Red Blood Cells # 0.0 Sodium Level 141 Potassium Level 4.2 Chloride Level 101 Carbon Dioxide Level 29 Anion Gap 11 Blood Urea Nitrogen 15 Creatinine 1.25 H Est Glomerular Filtrat Rate mL/min 60 Glucose Level 108 Calcium Level 9.1 Phosphorus Level 3.3 Magnesium Level 2.0 Total Bilirubin 1.3 Direct Bilirubin 0.00 Indirect Bilirubin 1.3 H Aspartate Amino Transf (AST/SGOT) 230 #H Alanine Aminotransferase (ALT/SGPT) 112 H Alkaline Phosphatase 67 Total Protein 7.3 Albumin 4.0 Globulin 3.30 H Albumin/Globulin Ratio 1.21 Home Meds Reported Medications [place]-3 Fatty Acids/Fish Oil (Fish Oil 1,000 mg Capsule) 1 Each Capsule, 1 EACH PO DAILY, CAP 03/26/18 Niacin* (Niacin*) 500 Mg Tablet, 500 MG PO QHS, TAB 03/26/18 Medications Current Medications Aspirin (Halfprin) 81 mg DAILY PO Last administered on 03/28/18at 08:01; Admin Dose 81 MG; Start 03/27/18 at 09:00 Prasugrel (Effient) 10 mg DAILY PO Last administered on 03/28/18at 08:01; Admin Dose 10 MG; Start 03/27/18 at 09:00 Acetaminophen (Tylenol Tab) 650 mg Q4H PRN PO PAIN; Start 03/26/18 at 21:30 Oxycodone/ Acetaminophen (Percocet (5/ 325)) 1 tab Q4H PRN PO PAIN Last ad ministered on 03/27/18at 09:21; Admin Dose 1 TAB; Start 03/26/18 at 21:30 Morphine Sulfate (morphine) 1 mg Q1H PRN IV PAIN; Start 03/26/18 at 21:30 Carvedilol (Coreg) 3.125 mg BID PO Last administered on 03/27/18at 20:09; Admin Dose 3.125 MG; Start 03/27/18 at 09:00 Atorvastatin Calcium (Lipitor) 80 mg DAILY@21 PO Last administered on 03/27/18at 20:09; Admin Dose 80 MG; Start 03/27/18 at 21:00 Lisinopril (Zestril) 2.5 mg DAILY PO Last administered on 03/27/18at 09:11; Admin Dose 2.5 MG; Start 03/27/18 at 09:00 Pantoprazole (Protonix Tab) 40 mg QHS PO Last administered on 03/27/18at 20:09; Admin Dose 40 MG; Start 03/26/18 at 22:00 Assessment/Plan Hospital Course (Demo Recall) 1. S/P SCD/ Survival of VF cardiac arrest 2. inferior STEMI 3. S/P emergent PCI LCX/OM 4. multivesel CAD 5. DYSLIPIDEMIA 6. GONZALEZ 7. Leukocytosis: probably reactive : Improved now REC: CONT ASA effient high dose statin betablocker as tolerated but limited due to hypotension and bradycardia CT head did not show any active bleeding PCI RCA tomorrow afternoon. high risk complex PCI LAD/ Diag at a later time. Thanks you JUANCARLOS CORONA MD [facility] JUANCARLOS CORONA MD Mar 28, 2018 14:13
[2018-03-28] MEDS: ATORVASTATIN 80 MG TAB PO SCH (20:34)
[2018-03-28] MEDS: PANTOPRAZOLE (EC) 40 MG TAB PO SCH (20:34)
[2018-03-29] VITALS (31 sets, daily range): BP systolic 85–134; BP diastolic 59–77; PULSE 0–92; RESP 12–24
[2018-03-29] MEDS ORDERED: AMIODARONE 150 MG INJ ONE (07:00)
[2018-03-29] MEDS: ASPIRIN (EC) 81 MG TAB PO SCH (08:17)
[2018-03-29] MEDS: PRASUGREL HYDROCHLORIDE 10 MG TABLET PO SCH (08:17)
--- NOTE | 2018-03-29 09:45 | PN ---
Date/Time of Note Date/Time of Note DATE: 03/29/18 TIME: 09:43 Subjective Chart was reviewed. Patient denies any chest pain or shortness of breath. Vital signs are stable he is afebrile Neck is supple no JVD no carotid bruits Lungs are clear to auscultation bilaterally Cardiac regular rate and rhythm no murmurs or gallops Abdomen soft nontender nondistended normoactive bowel sounds Extremities no clubbing cyanosis or edema Neurological nonfocal Objective Vitals Vital Signs Date Temp Pulse Resp B/P (MAP) Pulse Ox O2 O2 Flow FiO2 Time Delivery Rate 03/29/18 80 08:01 03/29/18 98.4 18 98/63 (75) 93 07:29 03/29/18 Room Air 04:03 03/26/18 2 20:20 Intake and Output 03/28/18 03/28/18 03/29/18 1515:00 23:00 07:00 IntakeIntake Total 450 ml 250 ml 250 ml OutputOutput Total 900 ml 250 ml BalanceBalance -450 ml 0 ml 250 ml Results Result Diagram: 03/29/18 0533 03/29/18 0533 Medications Medications Current Medications Aspirin (Halfprin) 81 mg DAILY PO Last administered on 03/29/18at 08:17; Admin Dose 81 MG; Start 03/27/18 at 09:00 Prasugrel (Effient) 10 mg DAILY PO Last administered on 03/29/18at 08:17; Admin Dose 10 MG; Start 03/27/18 at 09:00 Acetaminophen (Tylenol Tab) 650 mg Q4H PRN PO PAIN; Start 03/26/18 at 21:30 Oxycodone/ Acetaminophen (Percocet (5/ 325)) 1 tab Q4H PRN PO PAIN Last administered on 03/27/18at 09:21; Admin Dose 1 TAB; Start 03/26/18 at 21:30 Morphine Sulfate (morphine) 1 mg Q1H PRN IV PAIN; Start 03/26/18 at 21:30 Carvedilol (Coreg) 3.125 mg BID PO Last administered on 03/28/18at 20:35; Admin Dose 3.125 MG; Start 03/27/18 at 09:00 Atorvastatin Calcium (Lipitor) 80 mg DAILY@21 PO Last administered on 03/28/18at 20:34; Admin Dose 80 MG; Start 03/27/18 at 21:00 Lisinopril (Zestril) 2.5 mg DAILY PO Last administered on 03/27/18at 09:11; Admin Dose 2.5 MG; Start 03/27/18 at 09:00 Pantoprazole (Protonix Tab) 40 mg QHS PO Last administered on 03/28/18at 20:34; Admin Dose 40 MG; Start 03/26/18 at 22:00 VTE Prophylaxis Risk score (from Ns)>0 risk: 2 SCD applied (from [facility]): No SCD contraindication: low risk/ambulating Lines/Catheters IV Catheter Type: Saline Lock Mercado in Place: No Assessment/Plan Assessment/Plan 57-year-old male with acute inferior STEMI Status post cardiac arrest Status post PCI and stent placement to circumflex Hypertension Continue present medical therapy Patient is going back to [facility] for further intervention Cardiology follow-up Discharge planning in ASHLEY Thomas MD Mar 29, 2018 09:45
[2018-03-29] MEDS: LISINOPRIL 5 MG TAB PO SCH (11:32)
[2018-03-29] MEDS ORDERED: VERAPAMIL 5 MG INJ ONE ×2 (14:49→14:59)
[2018-03-29] MEDS ORDERED: NITROGLYCERIN (IC) 100 MCG/ML INJ ONE (14:49)
[2018-03-29] MEDS ORDERED: IODIXANOL LOCM 100 ML BTL ONE (14:49)
[2018-03-29] MEDS ORDERED: MIDAZOLAM 1 MG/ML 2 ML INJ ONE (14:49)
[2018-03-29] MEDS ORDERED: LIDOCAINE 1% (MDV) 20 ML INJ ONE (14:49)
[2018-03-29] MEDS ORDERED: FENTAnyl 50 MCG/ML VIAL ONE (14:49)
[2018-03-29] MEDS ORDERED: HEPARIN 1000 UNITS/ML 10 ML INJ ONE (14:49)
--- NOTE | 2018-03-29 15:58 | CONS ---
Consult Date/Type/Reason Admit Date/Time Mar 26, 2018 at 20:25 Initial Consult Date 03/26/18 Type of Consultation: CV Requesting Provider: JAMES MIMS MD Date/Time of Note DATE: 03/29/18 TIME: 15:52 Subjective Interventional cardiology follow-up progress note/critical care note Subjective: Case discussed with staff and multiple family members Patient with less chest wall tenderness. He has had no more episodes of idioventricular rhythm this morning. Denies any groin pain. Objective: General: no acute distress HEENT: NC/AT. pupils are equal. round. NECK: NO JVD. no stridor. CV: RRR. systolic murmur; no gallop or rubs. Chest: Positive reproducible chest wall tenderness PULM: no wheezing or rhonchi. GI: SOFT, NT, ND, no rebound or guarding Extremity: trace B/L LE edema. no clubbing. neuro: awake and alert, OX3. Psych: calm and pleasant rectal: deferred : normal Objective Vitals Vital Signs Date Temp Pulse Resp B/P (MAP) Pulse Ox O2 O2 Flow FiO2 Time Delivery Rate 03/29/18 76 12:01 03/29/18 97.9 18 134/72 99 11:21 (92) 03/29/18 Room Air 04:03 03/26/18 2 20:20 Intake and Output 03/28/18 03/28/18 03/29/18 1414:59 22:59 06:59 IntakeIntake Total 450 ml 250 ml 250 ml OutputOutput Total 900 ml 250 ml BalanceBalance -450 ml 0 ml 250 ml Results/Medications Result Diagram: 03/29/18 0533 03/29/18 0533 Results 24 hrs Laboratory Tests Test 03/29/18 05:33 White Blood Count 10.3 Red Blood Count 5.02 Hemoglobin 15.5 Hematocrit 45.0 Mean Corpuscular Volume 89.6 Mean Corpuscular Hemoglobin 30.9 Mean Corpuscular Hemoglobin Concent 34.4 Red Cell Distribution Width 12.6 Platelet Count 125 L Mean Platelet Volume 12.5 H Immature Granulocytes % 0.500 H Neutrophils % 64.6 Lymphocytes % 22.6 Monocytes % 9.8 Eosinophils % 2.1 Basophils % 0.4 Nucleated Red Blood Cells % 0.0 Immature Granulocytes # 0.050 H Neutrophils # 6.7 Lymphocytes # 2.3 Monocytes # 1.0 H Eosinophils # 0.2 Basophils # 0.0 Nucleated Red Blood Cells # 0.0 Prothrombin Time 13.3 Prothrombin Time Ratio 1.0 INR International Normalized Ratio 1.00 Sodium Level 139 Potassium Level 4.4 Chloride Level 104 Carbon Dioxide Level 28 Anion Gap 7 Blood Urea Nitrogen 19 Creatinine 1.20 Est Glomerular Filtrat Rate mL/min > 60 Glucose Level 105 Calcium Level 9.8 Phosphorus Level 3.9 Magnesium Level 2.1 Creatine Kinase 933 #H Creatine Kinase Index 0.5 Creatinine Kinase MB (Mass) 4.61 H Troponin I 26.400 *H Home Meds Reported Medications [place]-3 Fatty Acids/Fish Oil (Fish Oil 1,000 mg Capsule) 1 Each Capsule, 1 EACH PO DAILY, CAP 03/26/18 Niacin* (Niacin*) 500 Mg Tablet, 500 MG PO QHS, TAB 03/26/18 Medications Current Medications Aspirin (Halfprin) 81 mg DAILY PO Last administered on 03/29/18 08:17; Admin Dose 81 MG; Start 03/27/18 at 09:00 Prasugrel (Effient) 10 mg DAILY PO Last administered on 03/29/18 08:17; Admin Dose 10 MG; Start 03/27/18 at 09:00 Acetaminophen (Tylenol Tab) 650 mg Q4H PRN PO PAIN; Start 03/26/18 at 21:30 Oxycodone/ Acetaminophen (Percocet (5/ 325)) 1 tab Q4H PRN PO PAIN Last administered on 03/27/18at 09:21; Admin Dose 1 TAB; Start 03/26/18 at 21:30 Morphine Sulfate (morphine) 1 mg Q1H PRN IV PAIN; Start 03/26/18 at 21:30 Carvedilol (Coreg) 3.125 mg BID PO Last administered on 03/28/18at 20:35; Admin Dose 3.125 MG; Start 03/27/18 at 09:00 Atorvastatin Calcium (Lipitor) 80 mg DAILY@21 PO Last administered on 03/28/18at 20:34; Admin Dose 80 MG; Start 03/27/18 at 21:00 Lisinopril (Zestril) 2.5 mg DAILY PO Last administered on 03/29/18at 11:32; Admin Dose 2.5 MG; Start 03/27/18 at 09:00 Pantoprazole (Protonix Tab) 40 mg QHS PO Last administered on 03/28/18at 20:34; Admin Dose 40 MG; Start 03/26/18 at 22:00 Assessment/Plan Hospital Course (Demo Recall) 1. S/P SCD/ Survival of VF cardiac arrest 2. inferior STEMI 3. S/P emergent PCI LCX/OM 4. multivesel CAD 5. DYSLIPIDEMIA 6. GONZALEZ 7. Leukocytosis: probably reactive : Improved now REC: CONT ASA effient high dose statin betablocker as tolerated but limited due to hypotension and bradycardia CT head did not show any active bleeding PCI RCA today high risk complex PCI LAD/ Diag at a later time. Thanks you JUANCARLOS CORONA MD [facility] JUANCARLOS CORONA MD Mar 29, 2018 15:58
--- NOTE | 2018-03-29 16:06 | OPR ---
Date/Time of Note Date/Time of Note DATE: 03/29/18 TIME: 15:58 Operative Report Procedure Date: Mar 29, 2018 Preoperative Diagnosis TN. CAD Postoperative Diagnosis same Operation/Procedure Performed PCI RCA Surgeon see signature line Relocation Associate none Anesthesia Type: moderate sedation Estimated Blood Loss: minimal Transfusion none Specimen none Grafts/Implants none Complications none Procedure Description Building Appraiser: Juancarlos Lewis MD Building Appraiser: Juancarlos Lewis MD Indication: 57-year-old gentleman who presented with inferior ST elevation myocardial infarction a few days ago. Patient underwent PCI of his left cecum was artery at that time. He was also noted to have significant RCA and very c omplex LAD diagonal disease. He was scheduled for a stage PCI of the RCA and evaluation of the left circumflex artery because of his repeated chest pain today. Procure performed: #1 left heart catheterization and selective right and left coronary angiogram using left raidal approch. #2 Successful PTCA and stenting of right coronary artery using a 3 x 12 mm Synergy drug-eluting stent 3. Angioplasty of the ostium of the posterior lateral artery 4. Moderate sedation for more than 60 minutes Findings: 1. Left main: has 10% stenosis and birfurcates to LAD & LCX. 2. LAD: is small has 50% ostial 80-90 % stenosis at proximal LAD at the site of diagonal, and 100 % stenosis at mid LAD with L ---> L and R ---> L collaterals. diagonal 1 is moderate size vessel with 80% proximal stenosis. 3. Left circumflex artery: is moderate / large nondominant. Previous stent is widely patent 4. RCA: is dominant. is moderate size has 80% stenosis at proximal RCA (----->0% post PCI ) and 40% at mid RCA. The lateral artery is very small with about 90% ostial stenosis. The stricture was angioplastied there was about 30% residual stenosis left 5. LVEDP is about 3 Procedure in detail: Written informed consent with obtained after risks benefits and alternatives discussed with the patient in detail. risks including but not limited to risk of infection vascular complications, bleeding complications, TN stroke arrhythmia renal failure at even were discussed with the patient in detail. Patient was brought into the cardiac geophysical laboratory director and placed in supine position. Radial area was prepped and draped in regular sterile fashion and then he was in anesthetized using 1% lidocaine. radial artery was cannulated and using modified seldinger technique a 6 [place] sheath was placed in the radial artery. a JR4 later was advanced to engage the left ventricle hemodynamics as recorded by pullback aortic pressure was measured. At this time we decided to perform PCI of the right coronary artery. A JR4 guiding catheter was advanced to engage the RCA artery. BMW wire was used and advanced across the lesion and placed distal to the lesion. I used a 2.5X8 bal loon which was placed across the lesion and predilated the vessel. Then I advanced the balloon and ostium of the posterior lateral artery was angioplastied a little very low pressure to avoid dissection . then I used a 3 x 12 mm Synergy drug-eluting stent which was placed across the lesion and deployed at 16 [place]. Finally a 3.5 x 6 mm noncompliant balloon was used and postdilated the stent and up to 18 [place]. Final angiographic view was obtained which showed NELLI-3 flow no evidence of dissection and no significant residual stenosis at the site of the stent. Then a JL3.5 catheter was advanced and engaged into the left main coronary a rtery and angiographic view was obtained. . Patient tolerated the procedure well with no complication. Patient was transferred to recovery in stable condition. contrast used: 80 cc Visipaque Conclusions: Successful PTCA stenting of the right coronary artery from 80% stenosis to no significant residual stenosis using a 3 x 12 mm Synergy drug- eluting stent. Recommendations: Aggressive medical therapy. aspirin indefinitely dual antiplatlet therapy with aspirin and Effient Stage complex PCI of the LAD diagonal in a few weeks JUANCARLOS LEWIS MD [facility] JUANCARLOS LEWIS MD Mar 29, 2018 16:06
[2018-03-29] MEDS: SOD CHLORIDE 0.9% 1,000 ML IV SCH ×2 (16:33→23:53)
[2018-03-29] MEDS: ATORVASTATIN 80 MG TAB PO SCH (20:24)
[2018-03-29] MEDS: PANTOPRAZOLE (EC) 40 MG TAB PO SCH (20:24)
[2018-03-30] VITALS: PULSE 78
[2018-03-30 04:00] VITALS: BP 91/71; PULSE 69; PULSE 75; RESP 20
[2018-03-30 07:48] VITALS: BP 99/80; PULSE 88; RESP 18
[2018-03-30] MEDS: PRASUGREL HYDROCHLORIDE 10 MG TABLET PO SCH (08:11)
[2018-03-30] MEDS: ASPIRIN (EC) 81 MG TAB PO SCH (08:11)
[2018-03-30] MEDS: LISINOPRIL 5 MG TAB PO SCH (08:11)
[2018-03-30] MEDS ORDERED: ASPI-1044 PO (08:29)
[2018-03-30] MEDS ORDERED: PRAS10TA6 PO (08:29)
[2018-03-30] MEDS ORDERED: PANT40TA4 PO (08:29)
[2018-03-30] MEDS ORDERED: LISI-313 PO (08:29)
[2018-03-30] MEDS ORDERED: ATOR-2 PO (08:29)
[2018-03-30] MEDS ORDERED: CARV3.1260 PO (08:29)
--- NOTE | 2018-03-30 08:30 | PDOCDIS ---
Discharge Instructions CONDITION [id number] Patient Condition: [id number] Good HOME CARE INSTRUCTIONS: [id number] Diet Instructions: [id number] Low Fat /Cholesterol ACTIVITY: [id number] Activity Restrictions: [id number] Slowly Increase Activity FOLLOW UP/APPOINTMENTS Follow-up Plan pcp [address] Lewis 1 week ASHLEY WANG MD Mar 30, 2018 08:30
[2018-03-30 09:09] VITALS: PULSE 75
--- NOTE | 2018-03-30 09:45 | PDOCDIS ---
Discharge Instructions DIAGNOSIS Discharge Diagnosis Acute inferior wall STEMI Cardiac arrest due to V. fib Status post PCI and stent placement to circumflex and RCA 57-year-old male presented to ER with complaint of chest pain. He was diagnosed with inferior wall STEMI. While in the ER, he had cardiac arrest and developed ventricular fibrillation. Patient was successfully resuscitated. He was urgently taken to the [facility] and underwent PCI and stent placement to circumflex. Patient was taken back to the [facility] 2 days later and underwent PCI and stent placement to RCA. He needs more complex intervention in the near future. Patient remained free of chest pain during the hospitalization. He is in a stable condition for discharge. Case was discussed with Dr. Lewis who agreed with discharge planning. Physical exam was unremarkable. CONDITION [id number] Patient Condition: [id number] Good HOME CARE INSTRUCTIONS: [id number] Diet Instructions: [id number] Low Fat /Cholesterol ACTIVITY: [id number] Activity Restrictions: [id number] Slowly Increase Activity Rest between Activity Avoid heavy lifting FOLLOW UP/APPOINTMENTS Follow-up Plan pcp [address] Lewis 1 week ASHLEY WANG MD Mar 30, 2018 09:45
--- NOTE | 2018-03-30 09:56 | CONS ---
Consult Date/Type/Reason Admit Date/Time Mar 26, 2018 at 20:25 Initial Consult Date 03/26/18 Type of Consultation: CV Requesting Provider: JAMES MIMS MD Date/Time of Note DATE: 03/30/18 TIME: 09:55 Subjective Interventional cardiology follow-up progress note/critical care note Subjective: Case discussed with staff and multiple family members Patient with NO chest pain today Denies any groin pain or arm pain he wants to go home. Objective: General: no acute distress HEENT: NC/AT. pupils are equal. round. NECK: NO JVD. no stridor. CV: RRR. systolic murmur; no gallop or rubs. Chest: Positive reproducible chest wall tenderness PULM: no wheezing or rhonchi. GI: SOFT, NT, ND, no rebound or guarding Extremity: trace B/L LE edema. no clubbing. neuro: awake and alert, OX3. Psych: calm and pleasant rectal: deferred : normal vascular L RAIDAL no bleeding or hematoma Objective Vitals Vital Signs Date Temp Pulse Resp B/P (MAP) Pulse Ox O2 O2 Flow FiO2 Time Delivery Rate 03/30/18 75 09:09 03/30/18 98.0 18 99/80 (86) 97 Room Air 07:48 03/26/18 2 20:20 Intake and Output 03/29/18 03/29/18 03/30/18 1515:00 23:00 07:00 IntakeIntake Total 100 ml 750 ml BalanceBalance 100 ml 750 ml Results/Medications Result Diagram: 03/30/18 0757 03/30/18 0757 Results 24 hrs Laboratory Tests Test 03/30/18 07:57 White Blood Count 8.6 Red Blood Count 4.58 L Hemoglobin 14.0 Hematocrit 42.2 Mean Corpuscular Volume 92.1 Mean Corpuscular Hemoglobin 30.6 Mean Corpuscular Hemoglobin Concent 33.2 Red Cell Distribution Width 12.6 Platelet Count 136 L Mean Platelet Volume 12.3 H Immature Granulocytes % 0.500 H Neutrophils % 63.9 Lymphocytes % 23.6 Monocytes % 9.3 Eosinophils % 2.3 Basophils % 0.4 Nucleated Red Blood Cells % 0.0 Immature Granulocytes # 0.040 H Neutrophils # 5.5 Lymphocytes # 2.0 Monocytes # 0.8 Eosinophils # 0.2 Basophils # 0.0 Nucleated Red Blood Cells # 0.0 Sodium Level 141 Potassium Level 4.4 Chloride Level 104 Carbon Dioxide Level 25 Anion Gap 12 Blood Urea Nitrogen 16 Creatinine 1.17 Est Glomerular Filtrat Rate mL/min > 60 Glucose Level 108 Calcium Level 9.1 Magnesium Level 1.9 Total Bilirubin 0.9 Direct Bilirubin 0.00 Indirect Bilirubin 0.9 Aspartate Amino Transf (AST/SGOT) 62 H Alanine Aminotransferase (ALT/SGPT) 61 Alkaline Phosphatase 61 Creatine Kinase 488 #H B-Type Natriuretic Peptide 1100 H Total Protein 7.2 Albumin 3.9 Globulin 3.30 H Albumin/Globulin Ratio 1.18 Home Meds Active Scripts Pantoprazole* (Pantoprazole*) 40 Mg Tablet.dr, 40 MG PO QHS for 30 Days, 3 Refills Prov:ASHLEY WANG MD 03/30/18 Aspirin Delayed Release (Aspirin Delayed Release) 81 Mg Tablet.dr, 81 MG PO DAILY for 30 Days, 6 Refills Prov:ASHLEY WANG MD 03/30/18 Lisinopril* (Lisinopril*) 5 Mg Tablet, 2.5 MG PO DAILY for 30 Days, TAB 3 Refills Prov:ASHLEY WANG MD 03/30/18 Carvedilol* (Carvedilol*) 3.125 Mg Tablet, 3.125 MG PO BID for 30 Days, TAB 3 Refills Prov:ASHLEY WANG MD 03/30/18 Atorvastatin* (Atorvastatin*) 80 Mg Tablet, 80 MG PO DAILY@21 for 30 Days, TAB 3 Refills Prov:ASHLEY WANG MD 03/30/18 Prasugrel Hydrochloride* (Effient*) 10 Mg Tablet, 10 MG PO DAILY for 30 Days, TAB 3 Refills Prov:ASHLEY WANG MD 03/30/18 Reported Medications [place]-3 Fatty Acids/Fish Oil (Fish Oil 1,000 mg Capsule) 1 Each Capsule, 1 EACH PO DAILY, CAP 03/26/18 Niacin* (Niacin*) 500 Mg Tablet, 500 MG PO QHS, TAB 03/26/18 Medications Current Medications Aspirin (Halfprin) 81 mg DAILY PO Last administered on 03/30/18at 08:11; Admin Dose 81 MG; Start 03/27/18 at 09:00 Prasugrel (Effient) 10 mg DAILY PO Last administered on 03/30/18at 08:11; Admin Dose 10 MG; Start 03/27/18 at 09:00 Acetaminophen (Tylenol Tab) 650 mg Q4H PRN PO PAIN; Start 03/26/18 at 21:30 Oxycodone/ Acetaminophen (Percocet (5/ 325)) 1 tab Q4H PRN PO PAIN Last administered on 03/27/18 09:21; Admin Dose 1 TAB; Start 03/26/18 at 21:30 Morphine Sulfate (morphine) 1 mg Q1H PRN IV PAIN; Start 03/26/18 at 21:30 Carvedilol (Coreg) 3.125 mg BID PO Last administered on 03/28/18 20:35; Admin Dose 3.125 MG; Start 03/27/18 at 09:00 Atorvastatin Calcium (Lipitor) 80 mg DAILY@21 PO Last administered on 03/29/18 20:24; Admin Dose 80 MG; Start 03/27/18 at 21:00 Lisinopril (Zestril) 2.5 mg DAILY PO Last administered on 03/29/18 11:32; Admin Dose 2.5 MG; Start 03/27/18 at 09:00 Pantoprazole (Protonix Tab) 40 mg QHS PO Last administered on 03/29/18 20:24; Admin Dose 40 MG; Start 03/26/18 at 22:00 Assessment/Plan Hospital Course (Demo Recall) 1. S/P SCD/ Survival of VF cardiac arrest 2. inferior STEMI 3. S/P emergent PCI LCX/OM 4. multivesel CAD 5. DYSLIPIDEMIA 6. GONZALEZ 7. Leukocytosis: probably reactive : Improved now REC: CONT ASA effient high dose statin betablocker as tolerated but limited due to hypotension and bradycardia CT head did not show any active bleeding s/p PCI RCA 03/29 high risk complex PCI LAD/ Diag at a later time. DC PLanning. pt will need to see me in office with ECG IN 1-2 WEEKS. Thanks you JUANCARLOS CORONA MD [facility] JUANCARLOS CORONA MD Mar 30, 2018 09:56
--- NOTE | 2018-03-30 10:19 | RADRPT ---
Echocardiogram Report Patient Name: Adan RIVAS ID: [id number] : 1960 (57y 4m)Study Date: 03/27/2018 10:27:12 AM Gender: MAccession #: [id number] Tech: DARLIN Location: Ref.Physician: JUANCARLOS LEWIS Height(Cm): BSA: Weight(Kg): Quality: AdequateAccount #: [id number] Procedures: Echocardiographic Report: Transthoracic echocardiogram with complete 2D, M-Mode, and doppler examination. Indications: STEMI. Measurements: 2D/M Mode Doppler Measurement Value Normal Range Measurement Value Normal Range LVIDd 2D 4.4 [ 4.2 - 5.8 ] cm AV Peak Chirag 1.3 [ 100.0 - 170.0 ] cm/se c LVIDs 2D 3.1 [ 2.5 - 4.0 ] cm AV Peak PG 7.0 [ 2.0 - 9.0 ] mmHg LVPWd 2D 1.1 [ 0.6 - 1.0 ] cm LVOT Peak Chirag 0.8 [ 70.0 - 110.0 ] cm/sec IVSd 2D 1.0 [ 0.6 - 1.0 ] cm LVOT Peak PG 3.0 [ 2.0 - 6.0 ] mmHg AoR Diam 2D 3.3 [ 2.6 - 3.4 ] cm MV E Peak Chirag 0.6 [ 60.0 - 130.0 ] cm/sec EDV 2D 89.1 [ 62.0 - 150.0 ] ml MV A Peak Chirag 0.4 [ 100.0 - 120.0 ] cm/se c ESV 2D 37.0 [ 21.0 - 61.0 ] ml MV E/A 1.7 [ 0.8 - 1.5 ] ratio EF 2D 58.5 [ 52.0 - 72.0 ] percent MV PHT 84.0 [ 20.0 - 100.0 ] msec LA Dimen 2D 3.9 [ 3.0 - 4.0 ] cm MV Decel Time 285 [ 104 - 258 ] msec MV Decel Trego 2 Lat E` Chirag 0.1 [ 10.0 - 15.0 ] cm/sec Lateral E/E` 8.1 [ 1.0 - 2.0 ] ratio Med E` Chirag 0.1 cm/sec MV E/A 1.7 [ 0.8 - 1.5 ] ratio MVA PHT 2.6 [ 2.0 - 4.0 ] cm2 PV Peak Chirag 1.0 [ 40.0 - 80.0 ] cm/sec PV Peak PG 4.0 mmHg Findings: Left Ventricle: Lower limits of normal systolic function. Normal left ventricular cavity size. Normal left ventricular wall thickness. Ejection fraction is visually estimated at 50 %. Tissue Doppler/Mitral Doppler indices are most likely consistent with pseudonormalization with mildly elevated left atrial pressure (Stage II diastolic dysfunction). E/E'= 8. Multiple segmental wall motion abnormalities. These segments of the LV are hypokinetic apical lateral segment, anterolateral mid segment, inferior apex segment, inferoseptum basal segment and apical septum. Right Ventricle: Normal right ventricular size. Normal right ventricular systolic function. Left Atrium: The left atrium is normal in size. Right Atrium: The right atrium is normal in size. Atrial Septum: Normal atrial septum. Mitral Valve: Normal appearance of the mitral valve. Trace mitral regurgitation. Aortic Valve: Normal trileaflet aortic valve structure. Trace aortic valve regurgitation. Tricuspid Valve: Normal appearance of the tricuspid valve. Normal right ventricular systolic pressure. Pulmonic Valve: Normal pulmonic valve appearance. There is trace pulmonic regurgitation. Pericardium: Normal pericardium with no significant pericardial effusion. Aorta: Normal aortic root. IVC: Normal size and normal respiratory collapse consistent with normal right atrial pressure. Pulmonary Artery: Normal pulmonary artery size. Conclusions: Lower limits of normal systolic function. Normal left ventricular cavity size. Normal left ventricular wall thickness. Ejection fraction is visually estimated at 50 %. Tissue Doppler/Mitral Doppler indices are most likely consistent with pseudonormalization with mildly elevated left atrial pressure (Stage II diastolic dysfunction). E/E'= 8. Multiple segmental wall motion abnormalities. These segments of the LV are hypokinetic apical lateral segment, anterolateral mid segment, inferior apex segment, inferoseptum basal segment and apical septum. Normal appearance of the mitral valve. Trace mitral regurgitation. Normal trileaflet aortic valve structure. Trace aortic valve regurgitation. Normal appearance of the tricuspid valve. Normal right ventricular systolic pressure. Electronically Signed By: Juancarlos Lewis 2018-03-27 16:23:50 PST
== END 2018-03-30 09:59 | disposition home or self-care (01) | DRG 246 ==
LOC: E/R 20:02 → CCL 20:24 → ICU 20:25 → CCL 20:26 → ICU 22:00 → 6WM 03-28 18:25 → TEL 03-29 17:36
PROVIDERS: ADMIT Internal Medicine Interventional Cardiology; ATTEND Internal Medicine Interventional Cardiology
PROC: B211YZZ Fluoroscopy of Multiple Coronary Arteries using Other Contrast (ICD-10-PCS; 2018-03-26)
PROC: 5A12012 Performance of Cardiac Output, Single, Manual (ICD-10-PCS; 2018-03-26)
PROC: 5A2204Z Restoration of Cardiac Rhythm, Single (ICD-10-PCS; 2018-03-26)
PROC: 027034Z Dilation of Coronary Artery, One Artery with Drug-eluting Intraluminal Device, Percutaneous Approach (ICD-10-PCS; principal; 2018-03-26 20:00)
PROC: 4A023N7 Measurement of Cardiac Sampling and Pressure, Left Heart, Percutaneous Approach (ICD-10-PCS; 2018-03-26 20:00)
DX: I21.19 ST elevation (STEMI) myocardial infarction involving other coronary artery of inferior wall (principal); I46.2 Cardiac arrest due to underlying cardiac condition; I49.01 Ventricular fibrillation; E78.5 Hyperlipidemia, unspecified; I25.10 Atherosclerotic heart disease of native coronary artery without angina pectoris; I95.89 Other hypotension; R51 Headache
CPT/HCPCS: 36415; 70450; 71045; 80048; 80053; 80061; 82550; 82553; 83036; 83735; 83880; 84100; 84439; 84443; 84484; 85025; 85610; 87081; 93005; 93306; 93458; 96374; 96375; C1725; C1757; C1760; C1769; C1874; C1887; C9600; C9606; J0282; J0583; J1644; J1650; J2250; J2270; J2405; J3010; J3475; J7030; J7040; Q9967

== ENCOUNTER 2018-04-27 05:38 | Observation (INO) | payer OTHER ==
[2018-04-26 11:08] VITALS: BMI 30.0
[~2018-04-27] VITALS: Ht 165.1 cm; Wt 80.4 kg
[2018-04-27] VITALS (40 sets, daily range): BP systolic 85–124; BP diastolic 51–81; PULSE 48–130; RESP 11–79; Ht 165.1 cm; Wt 80.4 kg
[~2018-04-27 05:38] MED LIST changes: +ASPI-1044 PO; -ASPIRIN 81 MG TAB ONE; +ATOR-2 PO; +CARV3.1260 PO; +LISI-313 PO; +NIAC500T81 PO; +OMEG-135 PO; +PANT40TA4 PO; +PRAS10TA6 PO
[2018-04-27] MEDS ORDERED: SOD CHLORIDE 0.9% 1,000 ML IV SCH (06:00)
[2018-04-27] MEDS ORDERED: HEPARIN 1000 UNITS/ML 10 ML INJ ONE (07:20)
[2018-04-27] MEDS ORDERED: IODIXANOL LOCM 100 ML BTL ONE ×2 (07:20→08:46)
[2018-04-27] MEDS ORDERED: LIDOCAINE 1% (MDV) 20 ML INJ ONE (07:20)
[2018-04-27] MEDS ORDERED: MIDAZOLAM 1 MG/ML 2 ML INJ ONE (07:20)
[2018-04-27] MEDS ORDERED: NITROGLYCERIN (IC) 100 MCG/ML INJ ONE (07:21)
[2018-04-27] MEDS ORDERED: VERAPAMIL 5 MG INJ ONE (07:21)
[2018-04-27] MEDS ORDERED: FENTAnyl 50 MCG/ML VIAL ONE (07:24)
[2018-04-27] MEDS ORDERED: ONDANSETRON 4 MG INJ ONE (08:03)
[2018-04-27] MEDS ORDERED: IOHEXOL 350MG/ML 50 ML BTL ONE (08:51)
[2018-04-27] MEDS: SOD CHLORIDE 0.9% 1,000 ML IV SCH ×2 (09:11→16:25)
[2018-04-27] MEDS ORDERED: SOD CHLORIDE 0.9% 500 ML ONE (09:13)
[2018-04-27] MEDS ORDERED: PRASUGREL HYDROCHLORIDE 10 MG TABLET PO ONE (09:13)
--- NOTE | 2018-04-27 09:23 | OPR ---
Date/Time of Note Date/Time of Note DATE: 04/27/18 TIME: 09:14 Operative Report Procedure Date: Apr 27, 2018 Preoperative Diagnosis high risk CAD. BLAIR / angina equivalent Postoperative Diagnosis SAME Operation/Procedure Performed PCI LAD Surgeon see signature line Founder & Ceo Jung Anesthesia Type: moderate sedation Estimated Blood Loss: minimal Transfusion none Specimen none Grafts/Implants none Complications none Procedure Description Beater Engineer: Juancarlos Lewis MD Indication: 57-year-old Mac[place] gentleman with recent V. fib cardiac arrest ST elevation GA who underwent PCI of his left circumflex artery and right coronary artery stent month ago. Patient was also noted to have high risk proximal LAD as well as CT of the mid LAD. He was recommended to undergo complex PCI of this lesions as well. Patient also with dyspnea on exertion which appears to be his anginal equivalent. Procure performed: #1 left heart catheterization and selective left coronary angiogram #2 Right femoral angiogram and closure using a Perclose device 3. Successful PTCA and stenting of proximal and mid LAD (which was SPECIAL EDUCATION SECRETARY) using a 2.5 x 38 mm Synergy and a 3 x 32 mm Synergy drug-eluting stent 4. Successful PTCA of the diagonal using a 2.0 balloon 5. Moderate sedation for more than 90 minutes Findings: 1. Left main: has 10% stenosis and birfurcates to LAD & LCX. 2. LAD: is small/moderate has 50% ostial 80-90 % stenosis at proximal LAD at the site of diagonal, and 100 % chronic total occlusion at mid LAD with L ---> L collaterals. After successful PTCA stenting of this lesion there was no significant residual stenosis left diagonal 1 is moderate size vessel with 80% proximal stenosis. ---> Less than 10% residual stenosis post PCI 3. Left circumflex artery: is moderate / large nondominant. Previous stent is widely patent 4. LV: 119/13 aortic pressure by pull back: 98/55 Procedure in detail: Written informed consent with obtained after risks benefits and alternatives discussed with the patient in detail. risks including but not limited to risk of infection vascular complications, bleeding complications, GA stroke arrhythmia renal failure at even were discussed with the patient in deta il. Patient was brought into the cardiac laboratory apparatus glass blower and placed in supine position. Right and left groin area was prepped and draped in regular sterile fashion and then he was in anesthetized using 1% lidocaine. Right femoral artery was cannulated and using modified seldinger technique a 5 Estonian sheath was placed in the femoral artery. Femoral angiogram was performed. Perclose was used to preclosed the femoral artery. Then I placed a long 7 Estonian sheath in the right femoral artery . Then a pigtail was advanced to engage the left ventricle hemodynamics as recorded by pullback aortic pressure was measured. At this time we decided to perform PCI of the left anterior descending artery. A 7 Estonian Voda 3-2 guiding head was advanced to engage the left main coronary artery. Button Maker 200 wire was used with a backup with a courser catheter and was able to advanced across the lesion and placed distal to the lesion. Then with the use of course the wire was removed and a 300 cm MW wire was placed across th e distal LAD courser was removed. I used a 2.0 x 20 mm balloon which was placed across the lesion and predilated the vessel. Then I used a 2.5 x 30 mm balloon and predilated the vessel more. Then another BMW was used and cross into the diagonal branch. 2 x 20 mm balloon was used and dilated this vessel Then I used a 2.5 x 30 mm Synergy drug-eluting stent which was placed across the lesion at the mid LAD and deployed at 12 Haja. Then I used a 3 x 32 mm Synergy drug-eluting stent which was placed across the ostial/proximal LAD distally it was overlapping with the previous stent it was deployed at 14 haja. The stent balloon was advanced and overlapping stent area was dilated again at up to 12 and 14 haja. Finally a 3 x 12 mm noncompliant balloon was used and postdilated the stent and up to 20 Haja. Final angiographic view was obtained which showed NELLI-3 flow no evidence of dissection and no significant residual stenosis at the site of the stent. perclose was successfully deployed. Patient tolerated the procedure well with no complication. contrast used: 120CC visipaque Conclusions: Successful PTCA stenting of the ostial/proximal/mid left anterior descending artery from up to chronic total occlusion (100% stenosis) to no significant residual stenosis using 2 drug-eluting stent. Recommendations: Aggressive medical therapy. aspirin indefinitely dual antiplatlet therapy with Effient for the next year JUANCARLOS LEWIS MD [facility] JUANCARLOS LEWIS MD Apr 27, 2018 09:23
[2018-04-27] MEDS ORDERED: ACETAMINOPHEN 325 MG TAB PO PRN (09:30)
[2018-04-27] MEDS ORDERED: NITROGLYCERIN (SL) 0.4 MG TAB SL PRN (09:30)
[2018-04-27] MEDS ORDERED: ONDANSETRON 4 MG INJ IV PRN (09:30)
[2018-04-27] MEDS ORDERED: morphine 2 MG INJ IV PRN (09:30)
[2018-04-27] MEDS ORDERED: OXYCODONE/ACETAMINOPHEN (5/325) TAB PO PRN ×2 (09:30)
[2018-04-27] MEDS ORDERED: FISH OIL 1,000 MG CAP PO SCH (11:00)
--- NOTE | 2018-04-27 13:35 | HP ---
DATE OF ADMISSION: 04/27/2018 REASON FOR VISIT: Coronary artery disease. HOSPITAL COURSE: A 57-year-old male with known history of coronary artery disease, status post non-S DIMITRI in 03/2018 was elect[address] by Dr. Lewis. The patient underwent a successful PCI and st ent placement to LAD and diagonal. He initially presented about 1 month prior to admission with acut e non-STEMI and cardiac arrest. The patient now underwent PCI and stent placement to circumflex and RCA at that time. He denies any chest pain. He has had some dyspnea on exertion. PAST MEDICAL HISTORY: 1. Coronary artery disease. 2. History of previous [place]. 3. Hyperlipidemia. PHYSICAL EXAMINATION: GENERAL: Well-developed, well-nourished male who is in no apparent distress. VITAL SIGNS: Stable. He is afebrile. HEENT: Extraocular muscles are intact. Pupils are equal and reactive to light bilaterally. Sclerae are anicteric. Oropharynx is clear and moist. NECK: Supple. No JVD, no carotid bruits. LUNGS: Clear to auscultation bilaterally. CARDIAC: Regular rate and rhythm. No murmurs or gallops. ABDOMEN: Soft, nontender, nondistended, normoactive bowel sounds. EXTREMITIES: No clubbing, cyanosis or edema. NEUROLOGICAL: Nonfocal. ASSESSMENT: 1. A 57-year-old male with multivessel coronary artery disease. 2. Status post PCI and stent placement to LAD and diagonal. 3. History of [id number] myocardial infarction 1 month prior to admission. 4. Hyperlipidemia. PLAN: 1. Place in tele observation. 2. Continue present medical therapy. 3. Cardiology followup. Dictated By: ASHLEY WANG MD SK/NTS Conf#: [id number] DID#: [id number] CC: JUANCARLOS LEWIS MD;*EndCC*
[2018-04-27] MEDS: FISH OIL 1,000 MG CAP PO SCH (16:21)
[2018-04-27] MEDS ORDERED: ATORVASTATIN 80 MG TAB PO SCH (21:00)
[2018-04-27] MEDS ORDERED: PANTOPRAZOLE (EC) 40 MG TAB PO SCH (21:00)
[2018-04-28] VITALS: PULSE 58
[2018-04-28 03:36] VITALS: BP 108/65; PULSE 66; RESP 20
[2018-04-28 04:00] VITALS: PULSE 52
[2018-04-28 07:20] VITALS: BP 110/76; PULSE 59; RESP 16
[2018-04-28 08:01] VITALS: PULSE 61
[2018-04-28] MEDS: FISH OIL 1,000 MG CAP PO SCH (08:25)
--- NOTE | 2018-04-28 08:26 | PDOCDIS ---
Discharge Instructions CONDITION [id number] Patient Condition: [id number] Good HOME CARE INSTRUCTIONS: [id number] Diet Instructions: [id number] FOLLOW UP/APPOINTMENTS Follow-up Plan pcp [address] Lewis 2 weeks ASHLEY WANG MD Apr 28, 2018 08:26
--- NOTE | 2018-04-28 08:29 | CONS ---
Consult Date/Type/Reason Admit Date/Time Apr 27, 2018 at 09:14 Initial Consult Date Date/Time of Note DATE: 04/28/18 TIME: 08:28 Subjective Cardiology follow-up progress note Subjective: Discussed with discussed with staff discussed with : Patient remained sinus rhythm with no chest pain or pressure Was able to walk with minimal discomfort at the groin site no bleeding or hematoma Objective: General: no acute distress HEENT: NC/AT. pupils are equal. round. NECK: NO JVD. no stridor. CV: RRR. systolic murmur; no gallop or rubs. PULM: no wheezing or rhonchi. GI: SOFT, NT, ND, no rebound or guarding Extremity: trace B/L LE edema. no clubbing. neuro: awake and alert, OX3. Psych: calm and pleasant rectal: deferred : normal Vascular: Right femoral no bleeding no hematoma Objective Vitals Vital Signs Date Temp Pulse Resp B/P (MAP) Pulse Ox O2 O2 Flow FiO2 Time Delivery Rate 04/28/18 61 08:01 04/28/18 98.1 16 110/76 99 Room Air 07:20 (87) Intake and Output 04/27/18 04/27/18 04/28/18 1515:00 23:00 07:00 IntakeIntake Total 340 ml 900 ml OutputOutput Total 600 ml 1150 ml 3 ml BalanceBalance -600 ml -810 ml 897 ml Results/Medications Result Diagram: 04/28/18 0555 04/28/18 0548 Results 24 hrs Laboratory Tests Test 04/28/18 05:48 04/28/18 05:55 Sodium Level 144 Potassium Level 4.6 Chloride Level 106 Carbon Dioxide Level 26 Anion Gap 12 Blood Urea Nitrogen 18 Creatinine 1.22 Est Glomerular Filtrat Rate mL/min > 60 Glucose Level 110 Calcium Level 9.3 White Blood Count 8.6 # Red Blood Count 4.39 L Hemoglobin 13.2 L Hematocrit 40.8 L Mean Corpuscular Volume 92.9 Mean Corpuscular Hemoglobin 30.1 Mean Corpuscular Hemoglobin Concent 32.4 Red Cell Distribution Width 12.4 Platelet Count 86 L Mean Platelet Volume 13.7 H Immature Granulocytes % 0.400 Neutrophils % 68.0 Lymphocytes % 20.7 Monocytes % 7.7 Eosinophils % 3.0 Basophils % 0.2 Nucleated Red Blood Cells % 0.0 Immature Granulocytes # 0.030 Neutrophils # 5.8 Lymphocytes # 1.8 Monocytes # 0.7 Eosinophils # 0.3 Basophils # 0.0 Nucleated Red Blood Cells # 0.0 Creatine Kinase 50 Home Meds Active Scripts Pantoprazole* (Pantoprazole*) 40 Mg Tablet.dr, 40 MG PO QHS for 30 Days, 3 Refills Prov:ASHLEY WANG MD 03/30/18 Aspirin Delayed Release (Aspirin Delayed Release) 81 Mg Tablet.dr, 81 MG PO DAILY for 30 Days, 6 Refills Prov:ASHLEY WANG MD 03/30/18 Carvedilol* (Carvedilol*) 3.125 Mg Tablet, 3.125 MG PO BID for 30 Days, TAB 3 Refills Prov:ASHLEY WANG MD 03/30/18 Atorvastatin* (Atorvastatin*) 80 Mg Tablet, 80 MG PO DAILY@21 for 30 Days, TAB 3 Refills Prov:ASHLEY WANG MD 03/30/18 Prasugrel Hydrochloride* (Effient*) 10 Mg Tablet, 10 MG PO DAILY for 30 Days, TAB 3 Refills Prov:ASHLEY WANG MD 03/30/18 Reported Medications [place]-3 Fatty Acids/Fish Oil (Fish Oil 1,000 mg Capsule) 1 Each Capsule, 1 EACH PO DAILY, CAP 03/26/18 Niacin* (Niacin*) 500 Mg Tablet, 500 MG PO QHS, TAB 03/26/18 Discontinued Scripts Lisinopril* (Lisinopril*) 5 Mg Tablet, 2.5 MG PO DAILY for 30 Days, TAB 3 Refills Prov:ASHLEY WANG MD 03/30/18 Medications Current Medications Miscellaneous Information (* Miscellaneous Pharmacy Order) Hold all Metformin ... ONCE XX ; Start 04/27/18 at 09:30; Stop 04/29/18 at 09:29 Aspirin (Halfprin) 81 mg DAILY PO Last administered on 04/28/18at 08:24; Admin Dose 81 MG; Start 04/28/18 at 09:00 Nitroglycerin (Nitroglycerin (Sl Tab) 0.4 Mg) 1 tab Q5M PRN SL CHEST PAIN; Start 04/27/18 at 09:30 Acetaminophen (Tylenol Tab) 650 mg Q4H PRN PO PAIN; Start 04/27/18 at 09:30 Oxycodone/ Acetaminophen (Percocet (5/ 325)) 1 tab Q4H PRN PO PAIN Last administered on 04/27/18 16:33; Admin Dose 1 TAB; Start 04/27/18 at 09:30 Oxycodone/ Acetaminophen (Percocet (5/ 325)) 2 tab Q4H PRN PO PAIN; Start 04/27/18 at 09:30 Morphine Sulfate (morphine) 1 mg Q1H PRN IV PAIN; Start 04/27/18 at 09:30 Ondansetron HCl (Zofran Inj) 4 mg Q4H PRN IV NAUSEA AND/OR VOMITING; Start 04/27/18 at 09:30 Atorvastatin Calcium (Lipitor) 80 mg DAILY@21 PO Last administered on 04/27/18 20:59; Admin Dose 80 MG; Start 04/27/18 at 21:00 Carvedilol (Coreg) 3.125 mg BID PO Last administered on 04/28/18 08:26; Admin Dose 3.125 MG; Start 04/27/18 at 21:00 Lisinopril (Zestril) 2.5 mg DAILY PO Last administered on 04/28/18 08:25; Admin Dose 2.5 MG; Start 04/28/18 at 09:00 Pantoprazole (Protonix Tab) 40 mg QHS PO Last administered on 04/27/18 20:59; Admin Dose 40 MG; Start 04/27/18 at 21:00 Prasugrel (Effient) 10 mg DAILY PO Last administered on 04/28/18 08:24; Admin Dose 10 MG; Start 04/28/18 at 09:00 Fish Oil (Fish Oil) 1,000 mg DAILY PO Last administered on 04/28/18 08:25; Admin Dose 1,000 MG; Start 04/27/18 at 14:00 Assessment/Plan Hospital Course (Demo Recall) Multivessel coronary artery disease and status post multiple PCI including PCI of his proximal and mid LAD Status post V. fib cardiac arrest Hypertension Dyslipidemia Recommendations: Stop the lisinopril due to low blood pressure. Continue with aspirin and Effient Beta-jackelyn to be continued Statin to be continued DC planning for today follow-up with me in the office in 1-2 weeks. JUANCARLOS CORONA MD [facility] JUANCARLOS CORONA MD Apr 28, 2018 08:29
[2018-04-28] MEDS ORDERED: ASPIRIN (EC) 81 MG TAB PO SCH ×2 (09:00)
[2018-04-28] MEDS ORDERED: LISINOPRIL 5 MG TAB PO SCH (09:00)
[2018-04-28] MEDS ORDERED: PRASUGREL HYDROCHLORIDE 10 MG TABLET PO SCH (09:00)
--- NOTE | 2018-04-28 10:13 | DS ---
DATE OF ADMISSION: 04/27/2018 DATE OF DISCHARGE: 04/28/2018 DISCHARGE DIAGNOSES: 1. A 57-year-old male with multivessel coronary artery disease. 2. Status post percutaneous coronary intervention and stent placement to LAD and diagonal. 3. History of non-ST elevated myocardial infarction one month prior to admission, complicated by a c ardiac arrest. 4. Hyperlipidemia. HOSPITAL COURSE: A 57-year-old male with known history of coronary artery disease, status post non-S T elevation myocardial infarction in March of 2018 followed by a cardiac arrest, was electively ad mitted by Dr. Lewis. The patient had previously undergone PCI and stent placement at the time of hi s initial presentation. At this time, he underwent PCI and stent placement to LAD and diagonal. The re were no intraoperative or postoperative complications. The patient has remained free of symptoms. He is in stable condition. MEDICATIONS ON DISCHARGE: 1. Aspirin 81 mg daily. 2. Effient 10 mg daily. 3. Lipitor 80 mg at bedtime. 4. Niacin 500 mg at bedtime. 5. Protonix 40 mg daily. 6. Coreg 3.125 mg b.i.d. 7. Lisinopril was discontinued. PLAN: 1. Follow up with PCP in 1 week. 2. Follow up with Dr. Lewis in 2 weeks. Dictated By: ASHLEY YEPEZ/NTS Conf#: [id number] DID#: [id number] CC: JUANCARLOS LEWIS MD;*EndCC*
--- NOTE | 2018-04-28 15:34 | RADRPT ---
Vent Rate: 52 bpm RR Interval: 0 msec UT Interval: 174 msec QRS Duration: 84 msec QT Interval: 468 msec QTC Interval: 435 msec P-R-T [place]: 51 - 37 - -37 degrees Sinus bradycardia Lateral infarct , age undetermined Inferior-posterior infarct , age undetermined Abnormal ECG Electronically Signed By: Neal Card
== END 2018-04-28 09:42 | disposition home or self-care (01) ==
LOC: CCL 05:38 → SDS 05:38 → REC 09:14 → CCL 09:14 → TEL 15:37
PROVIDERS: ADMIT Internal Medicine Interventional Cardiology; ATTEND Internal Medicine Interventional Cardiology
DX: I25.118 Atherosclerotic heart disease of native coronary artery with other forms of angina pectoris (principal); E78.5 Hyperlipidemia, unspecified; I25.2 Old myocardial infarction
CPT/HCPCS: 80048; 80053; 80061; 82550; 82553; 84484; 85025; 85610; 85730; 87081; 92943; 92944; 93005; 93458; 99217; C1725; C1760; C1769; C1874; C1887; C1894; G0378; J1644; J2250; J2405; J3010; J7040; Q9967

== ENCOUNTER 2018-10-09 16:47 | Observation (INO) | payer OTHER ==
[~2018-10-09] VITALS: Ht 167.6 cm; Wt 79.1 kg
[~2018-10-09 16:47] MED LIST changes: +ASPI-903 PO; -LISI-313 PO
[2018-10-09] MEDS ORDERED: SOD CHLORIDE 0.9% 1,000 ML IV STA (19:15)
[2018-10-09] MEDS ORDERED: ACETAMINOPHEN 325 MG TAB PO PRN ×2 (21:00→21:30)
[2018-10-09] MEDS ORDERED: ONDANSETRON 4 MG INJ IV PRN (21:00)
[2018-10-09] MEDS ORDERED: ONDANSETRON 4 MG TAB PO PRN (21:30)
[2018-10-09] MEDS ORDERED: DOCUSATE SODIUM 100 MG CAP PO PRN (21:30)
[2018-10-09] MEDS ORDERED: NACL 0.9% 3 ML SYG IV SCH (21:30)
[2018-10-09 22:14] VITALS: Ht 167.6 cm; Wt 79.1 kg
[2018-10-09] MEDS: FAMOTIDINE 20 MG TAB PO SCH (22:35)
[2018-10-09] MEDS ORDERED: ATROPINE 1 MG/10 ML SYRINGE IV PRN (23:00)
[2018-10-09 23:26] VITALS: BP 121/78; PULSE 68; RESP 18
[2018-10-10 03:33] VITALS: BP 103/65; PULSE 54; RESP 18
[2018-10-10 07:33] VITALS: BP 112/68; PULSE 50; RESP 20
[2018-10-10] MEDS: FAMOTIDINE 20 MG TAB PO SCH ×2 (08:45→20:10)
[2018-10-10] MEDS: ENOXAPARIN 40 MG/0.4 ML SYG SC SCH (08:56)
[2018-10-10 11:19] VITALS: BP 114/78; PULSE 55; RESP 20
[2018-10-10] MEDS: ASPIRIN (EC) 81 MG TAB PO SCH (11:36)
[2018-10-10] MEDS: CHOLECALCIFEROL 1,000 UNIT TAB PO SCH (11:36)
[2018-10-10] MEDS: PANTOPRAZOLE (EC) 40 MG TAB PO SCH (11:36)
[2018-10-10] MEDS: PRASUGREL HYDROCHLORIDE 10 MG TABLET PO SCH (14:55)
[2018-10-10] MEDS: TIMOLOL 0.5% 5 ML OPH RIGHT EYE SCH ×2 (14:55→20:10)
[2018-10-10 15:32] VITALS: BP 129/71; PULSE 42; RESP 20
[2018-10-10 19:11] VITALS: BP 126/82; PULSE 57; RESP 20
[2018-10-10] MEDS ORDERED: ATORVASTATIN 80 MG TAB PO SCH (21:00)
[2018-10-10 23:19] VITALS: BP 112/57; PULSE 56; RESP 20
[2018-10-11 03:58] VITALS: BP 107/70; PULSE 63; RESP 20
[2018-10-11] MEDS: PANTOPRAZOLE (EC) 40 MG TAB PO SCH (05:44)
[2018-10-11 07:33] VITALS: BP 121/78; PULSE 49; RESP 20
[2018-10-11] MEDS: FAMOTIDINE 20 MG TAB PO SCH (07:55)
[2018-10-11] MEDS: PRASUGREL HYDROCHLORIDE 10 MG TABLET PO SCH (07:56)
[2018-10-11] MEDS: CHOLECALCIFEROL 1,000 UNIT TAB PO SCH (07:56)
[2018-10-11] MEDS: ASPIRIN (EC) 81 MG TAB PO SCH (07:56)
[2018-10-11] MEDS: ENOXAPARIN 40 MG/0.4 ML SYG SC SCH (08:04)
[2018-10-11 11:40] VITALS: BP 130/81; PULSE 51; RESP 20
[2018-10-11] MEDS: TIMOLOL 0.5% 5 ML OPH RIGHT EYE SCH (12:15)
[2018-10-11 15:20] VITALS: BP 125/86; PULSE 50; RESP 20
== END 2018-10-11 16:20 | disposition home or self-care (01) ==
LOC: E/R 16:47 → MERGE 20:45 → 6WM 20:45 → INTOOBSV 20:45
PROVIDERS: ADMIT Internal Medicine; ATTEND Internal Medicine
DX: R55 Syncope and collapse (principal); I25.10 Atherosclerotic heart disease of native coronary artery without angina pectoris; Z95.5 Presence of coronary angioplasty implant and graft; E78.5 Hyperlipidemia, unspecified; Z79.82 Long term (current) use of aspirin; K21.9 Gastro-esophageal reflux disease without esophagitis; I10 Essential (primary) hypertension; I25.2 Old myocardial infarction
CPT/HCPCS: 70450; 71045; 80048; 82550; 82553; 83036; 84443; 84484; 85025; 85378; 85610; 85730; 87081; 93005; 93306; 93880; 99285; G0378; J1650; J7030; J0461